=== PATIENT | male | born 1955 | race Caucasian/White ===

== ENCOUNTER 2019-08-02 17:34 | Observation (INO) | payer OTHER, SELFPAY ==
--- NOTE | ~2019-08-02 | CT_ITS ---
EXAMINATION: CTA chest DATE: 08/02/2019 19:08 INDICATION: Posterior chest pain TECHNIQUE: Computed tomographic angiography (CTA) of the chest was performed without and with 100 mL Omnipaque-350 intravenous contrast. Volume-rendered 3D-reconstructions of the aorta and large arterie s were constructed by the technologist on a separate workstation. Automated exposure control and iter ative reconstruction technique were employed. The dose-length product was 801 mGy-cm. COMPARISON: None FINDINGS: Minimal linear discoid atelectasis in the left lower lobe. No pneumonia, pulmonary edema, pleural eff usion or pneumothorax. Heart size is normal. Atherosclerotic coronary artery calcifications. Changes of prior coronary artery stenting and median sternotomy with coronary artery bypass grafting. No sang cardial effusion. Small amount of atherosclerotic calcification throughout the normal caliber thoraci c aorta. No aneurysm or dissection. Severe atrophy of the central portion of the right kidney. 3 to 4 mm nonobstructing right renal stone. Partially visualized 2.9 cm cyst at the lower pole of the left kidney. Multiple small gallstones in the dependent aspect of the normal-appearing gallbladder. Visua lized upper abdomen is otherwise unremarkable. Chronic mild anterior wedging of several vertebral bod ies in the mid to lower thoracic spine. There are bridging osteophytes at multiple levels in the spin e, consistent with diffuse idiopathic skeletal hyperostosis (DISH). IMPRESSION: 1. Normal caliber thoracic aorta with no aneurysm or dissection. No other acute cardiopulmonary disea se. 2. Cholelithiasis. 3. Nonobstructing 3-4 mm right renal stone and severe atrophy at the central portion of the right kid fabiola. Reviewed, dictated and finalized at location A. IMPRESSION: 1. Normal caliber thoracic aorta with no aneurysm or dissection. No other acute cardiopulmonary disease. 2. Cholelithiasis. 3. Nonobstructing 3-4 mm right renal stone and severe atrophy at the central po rtion of the right kidney.
--- NOTE | ~2019-08-02 | US_ITS ---
EXAMINATION: US right upper quadrant DATE: 08/03/2019 08:04 INDICATION: Gallstones. Chest pain. TECHNIQUE: Multiple grayscale and Doppler ultrasound images of the abdomen were obtained. COMPARISON: Chest CT 08/02/2019 FINDINGS: The visualized portions of the head, body, and tail of the pancreas are normal. The liver i s normal without focal lesion. There is normal flow in main portal vein. There are gallstones in the gallbladder, which is normal in size. No gallbladder wall thickening or sonographic Messina sign. The common duct is normal and measures 4 mm. There is moderate atrophy of right kidney. There is a 4 mm n onobstructing right kidney stone. IMPRESSION: 1. Cholelithiasis. No evidence of acute cholecystitis. 2. Nonobstructing right kidney stone. Moderate right kidney atrophy. Reviewed, dictated and finalized at location A.
[2019-08-02 18:00] VITALS: BP 105/57; PULSE 99; RESP 16; TEMP 36.3; O2SAT 96
[2019-08-02] MEDS: ASPIRIN 81 MG CHEWABLE TABLET 324 MG PO (18:10)
[2019-08-02 18:18] LABS: Basophils Absolute Auto 0.03 K/mm3 (0.00-0.10); Basophils Percent Auto 0.3 % (0.0-1.0); Eosinophils Absolute Auto 0.06 K/mm3 (0.02-0.50); Eosinophils Percent Auto 0.7 % (1.0-6.0); Hematocrit 42.3 % (40.0-54.0); Hemoglobin 13.9 g/dL (14.0-18.0); Immature Granulocyte Absolute 0.03 K/mm3 (0.00-0.00); Immature Granulocyte Percent A 0.3 % (0.0-0.0); Lymphocytes Absolute Auto 1.03 K/mm3 (1.10-4.50); Lymphocytes Percent Auto 11.5 % (18.0-42.0); Mean Corpuscular HGB Conc 32.9 g/dL (32.0-36.0); Mean Corpuscular Hemoglobin 28.7 pg (27.0-31.0); Mean Corpuscular Volume 87.2 fL (78.0-102.0); Mean Platelet Volume 12.7 fl (8.7-11.0); Monocytes Absolute Auto 0.48 K/mm3 (0.10-0.90); Monocytes Percent Auto 5.4 % (2.0-11.0); Neutrophils Absolute Auto 7.3 K/mm3 (1.7-7.2); Neutrophils Percent Auto 81.8 % (50.0-70.0); Platelet Count Result 163 K/mm3 (150-420); Red Blood Count 4.85 M/mm3 (4.70-6.10); Red Cell Distribution Width 13.9 % (11.6-14.4); White Blood Count 8.9 K/mm3 (4.8-10.8)
[2019-08-02 18:34] LABS: INR 1.1; Partial Thromboplastin Time 24.7 SEC (22.3-31.6)
[2019-08-02 18:36] LABS: Alanine Aminotransferase 18 U/L (16-63); Albumin Level 3.4 g/dL (3.4-5.0); Alkaline Phosphatase 88 U/L (46-116); Anion Gap 12.8 mmol/L (7-16); Aspartate Amino Transferase 20 U/L (15-37); Bilirubin,Total 0.7 mg/dL (0.00-1.00); Blood Urea Nitrogen 7 mg/dL (7-18); Calcium 8.5 mg/dL (8.5-10.1); Carbon Dioxide 26 mmol/L (21-32); Chloride 102 mmol/L (98-108); Estimated Glomerular Filt Rate 32; Glucose 177 mg/dL (70-99); Lipase 90 U/L (73-393); Osmolality Calculated 286 mOsm/kg (285-295); Potassium 3.8 mmol/L (3.5-5.1); Sodium 137 mmol/L (136-145); Total Protein 6.2 g/dL (6.4-8.2); Troponin I < 0.02 ng/mL (0.00-0.056)
[2019-08-02 18:42] LABS: BNP 56.4 pg/mL (0-100)
[2019-08-02 19:11] VITALS: BP 115/71; PULSE 80; O2SAT 98
--- NOTE | 2019-08-02 19:39 | ED.CHESTPAIN ---
HPI - Chest Pain General Chief Complaint: Chest Pain Stated Complaint: Chest Pain Source: patient Mode of arrival: ambulatory Limitations: no limitations History of Present Illness HPI narrative: This is a 64-year-old gentleman that presents with substernal chest pain radiating to his mid upper back with some that started earlier today has a history of coronary artery disease status post CABG back approximately in 2013 had a 4 vessel bypass and is currently seeing Dr. Smith the diamond broker, took 2 nitroglycerin tablet earlier prior to arrival. There was no shortness of breath no peripheral edema no fever chills no nausea vomiting pain did radiate to his mid upper back also has a history of hyperlipidemia, hypertension and depression. MD complaint: chest pain Pertinent past history: coronary artery disease Onset (ago): hour(s) Timing of current episode: episodic Prior episodes: Yes Onset: during rest Pain location: substernal Pain radiation: back Severity: moderate Pain scale (0-10): 6 Quality: tightness Relieving factors: nitroglycerin Exacerbating factors: nothing Context: recent illness Treatment prior to arrival: nitroglycerin Related Data Home Medications Medication Instructions Recorded Confirmed aspirin 81 mg PO DAILY 08/02/19 08/02/19 atorvastatin 40 mg PO DAILY 08/02/19 08/02/19 isosorbide mononitrate 30 mg PO DAILY 08/02/19 08/02/19 lorazepam 1 mg PO TID PRN 08/02/19 08/02/19 nitroglycerin 0.4 mg SUBLINGUAL Q5MIN PRN 08/02/19 08/02/19 paroxetine HCl 40 mg PO DAILY 08/02/19 08/02/19 tamsulosin 0.4 mg PO DAILY 08/02/19 08/02/19 Allergies Allergy/AdvReac Type Severity Reaction Status Date / Time No Known Allergies Allergy Verified 08/02/19 18:46 Review of Systems Review of Systems: All systems reviewed & are unremarkable except as noted in HPI and below PMFSH Past Medical History Medical History CAD (coronary artery disease) Depression HLD (hyperlipidemia) Exam Const: General: no acute distress and alert Orientation/consciousness: patient oriented x3 HENMT: Head: normal to inspection Eyes: Conjunctivae: conjunctivae normal Pupils: Equal, round and reactive pupils present EOM: EOMs intact bilaterally Neck: Neck: normal visual inspection Chest: Chest palpation & inspection: normal inspection of the chest Resp: Effort & Inspection: normal respiratory effort Auscultation: clear to auscultation bilaterally Cardio: Rate: regular rate Rhythm: regular rhythm GI: Auscultation: normal bowel sounds : Testes: Testes normal Skin: General skin exam: normal color Rashes: no rashes Neuro: General: patient oriented x3 and moves all extremities Extrem: General: normal to inspection Psych: Appearance: grossly normal Mental Status: mental status grossly normal Course Course Emergency Course: reassessment of patient appears more comfortable currently are no chest pain does have some mild upper back pain. Vital Signs Vital signs: Vital Signs Temperature 36.3 C L 08/02/19 18:00 Pulse Rate 99 08/02/19 18:00 Respiratory Rate 16 08/02/19 18:00 Blood Pressure 105/57 L 08/02/19 18:00 Pulse Oximetry 96 08/02/19 18:00 Temperature 36.3 C L 08/02/19 18:00 Pulse Rate 80 08/02/19 19:11 Respiratory Rate 16 08/02/19 18:00 Blood Pressure 115/71 08/02/19 19:11 Pulse Oximetry 98 08/02/19 19:11 MDM - Chest Pain Lab Data Attestation: I reviewed the patient's lab results. Result diagrams: 08/02/19 18:13 08/02/19 18:13 Labs: Lab Results 08/02/19 08/02/19 08/02/19 Range/Units 18:13 18:13 18:13 WBC 8.9 (4.8-10.8) K/mm3 RBC 4.85 (4.70-6.10) M/mm3 Hgb 13.9 L (14.0-18.0) g/dL Hct 42.3 (40.0-54.0) % MCV 87.2 (78.0-102.0) fL MCH 28.7 (27.0-31.0) pg MCHC 32.9 (32.0-36.0) g/dL RDW 13.9 (11.6-14.4) % Plt Count 163 (150-420) K/mm3
[2019-08-02 19:47] VITALS: PULSE 88; O2SAT 98
[2019-08-02 19:56] VITALS: BP 121/72; PULSE 80; RESP 17; O2SAT 98
[2019-08-02 20:00] VITALS: PULSE 88
[2019-08-02 20:20] VITALS: BMI 25.0
[2019-08-02] MEDS: SODIUM CHLORIDE 0.9% IV 1,000 ML 100 ML IV CONT (20:43)
[2019-08-02 21:47] LABS: Troponin I < 0.02 ng/mL (0.00-0.056)
[2019-08-02 23:45] VITALS: BP 141/77; PULSE 81; PULSE 83; RESP 18; TEMP 36.6; O2SAT 97
--- NOTE | 2019-08-02 23:45 | PC.NURSE ---
Patient appears to have st elevation of telemetry strip. Vital signs obtained. Patient denies pain, nausea, shortness of breath. Patient informed to call nurse if he began having any symptoms. charge nurse notified.
--- NOTE | 2019-08-02 23:55 | PC.NURSE ---
Patient telemetry appears to be having ST elevation. Doctor notified. Patient was sleeping. Pain rated at 0. VS 141/77 81 97% 18 97.5. Trop draw due at 0013. Doctor ordered EKG for the morning.
--- NOTE | 2019-08-02 23:59 | ECG_ITS ---
Measurements Intervals [place] Rate: 101 P: 18 MN: 145 QRS: 34 QRSD: 97 T: 39 QT: 339 QTc: 441 Interpretive Statements SINUS TACHYCARDIA INCOMPLETE RIGHT BUNDLE BRANCH BLOCK BASELINE ARTIFACT- I, II, III BORDERLINE ECG Electronically Signed On 08-03-2019 6:56:55 CDT by Jacky Hunter D.O.
--- NOTE | 2019-08-03 00:23 | PC.NURSE ---
Lab up to draw troponin, patient continues to denies chest pain.
[2019-08-03 00:46] LABS: Troponin I < 0.02 ng/mL (0.00-0.056)
[2019-08-03 04:00] VITALS: BP 144/74; PULSE 63; PULSE 70; RESP 18; TEMP 36.9; O2SAT 97
--- NOTE | 2019-08-03 06:08 | PC.NURSE ---
Patient up in bathroom independently. He denies pain. He states that he feels well this morning.
[2019-08-03] MEDS: SODIUM CHLORIDE 0.9% IV 1,000 ML 100 ML IV CONT (06:14)
--- NOTE | 2019-08-03 06:27 | ECG_ITS ---
Measurements Intervals [place] Rate: 64 P: 42 CT: 163 QRS: 50 QRSD: 100 T: 37 QT: 396 QTc: 411 Interpretive Statements SINUS OR ECTOPIC ATRIAL RHYTHM INCOMPLETE RIGHT BUNDLE BRANCH BLOCK BORDERLINE ECG Electronically Signed On 08-03-2019 6:57:44 CDT by Jacky Hunter D.O.
[2019-08-03 08:00] VITALS: BP 141/77; PULSE 79; PULSE 81; RESP 18; TEMP 36.7; O2SAT 97
[2019-08-03 08:27] LABS: Basophils Absolute Auto 0.02 K/mm3 (0.00-0.10); Basophils Percent Auto 0.3 % (0.0-1.0); Eosinophils Absolute Auto 0.21 K/mm3 (0.02-0.50); Hematocrit 41.8 % (40.0-54.0); Hemoglobin 13.5 g/dL (14.0-18.0); Immature Granulocyte Absolute 0.02 K/mm3 (0.00-0.00); Immature Granulocyte Percent A 0.3 % (0.0-0.0); Lymphocytes Absolute Auto 1.68 K/mm3 (1.10-4.50); Mean Corpuscular HGB Conc 32.3 g/dL (32.0-36.0); Mean Corpuscular Hemoglobin 28.2 pg (27.0-31.0); Mean Corpuscular Volume 87.3 fL (78.0-102.0); Mean Platelet Volume 12.2 fl (8.7-11.0); Monocytes Percent Auto 7.1 % (2.0-11.0); Neutrophils Absolute Auto 4.6 K/mm3 (1.7-7.2); Neutrophils Percent Auto 65.3 % (50.0-70.0); Platelet Count Result 153 K/mm3 (150-420); Red Blood Count 4.79 M/mm3 (4.70-6.10); Red Cell Distribution Width 14.1 % (11.6-14.4)
[2019-08-03] MEDS: ATORVASTATIN 40 MG TABLET PO (08:32)
[2019-08-03] MEDS: TAMSULOSIN HCL 0.4 MG CAPSULE PO (08:32)
[2019-08-03] MEDS: ASPIRIN 81 MG CHEWABLE TABLET PO (08:32)
[2019-08-03] MEDS: PAROXETINE 20 MG TABLET 40 MG PO (08:32)
[2019-08-03] MEDS: ISOSORBIDE MONONITRATE 30 MG TAB.ER.24H PO (08:32)
[2019-08-03 09:03] LABS: Alanine Aminotransferase 18 U/L (16-63); Albumin Level 3.1 g/dL (3.4-5.0); Alkaline Phosphatase 81 U/L (46-116); Aspartate Amino Transferase 13 U/L (15-37); Bilirubin,Total 0.7 mg/dL (0.00-1.00); Blood Urea Nitrogen 10 mg/dL (7-18); Calcium 8.3 mg/dL (8.5-10.1); Carbon Dioxide 27 mmol/L (21-32); Chloride 106 mmol/L (98-108); Estimated CRCL calculation 47 ml/min; Estimated Glomerular Filt Rate 47; Glucose 99 mg/dL (70-99); Osmolality Calculated 289 mOsm/kg (285-295); Sodium 140 mmol/L (136-145); Total Protein 5.7 g/dL (6.4-8.2)
[2019-08-03 12:00] VITALS: BP 118/59; PULSE 81; RESP 16; O2SAT 98
--- NOTE | 2019-08-03 12:52 | PM.SD ---
Same Day Admit/Disch: HPI History of Present Illness Chief complaint: Chest Pain Narrative: Ambrose Clarke is a 64 year old male that was admitted yesterday with complaints of chest pain. patient has a past medical history of CAD, depression, HLD and status post CABG x4 vessels in 2013. according the patient while he was out fishing yesterday he started to experiencing chest pains that radiated to his shoulders and caused stomach ache with nausea. Patient noted that he took 2 nitros with no improvement and have an hour later he took another nitro with no improvement. This is when he decided to come to ED. Patient noted that once he arrived to the ED his symptoms resolved. While in the ED troponins were collected x3 which were negative, D-dimer within normal limits, his EKG did indicate sinus tach the heart rate of 101, CTA negative for dissection or aneurysm. On a CTA that was 3.4 mm renal stone that was nonobstructing identified. Ultrasound was completed which indicated moderate atrophy of right kidney and 4 mm nonobstructive right kidney stone. Patient creatinine was slightly elevated on admission it is currently 1.50 with his baseline being 1.30. Patient has been asymptomatic since admission and his night was uneventful. Her record of this admission will be faxed to Dr. Smith and he will be discharged today with a refill on his nitro and a prescription for PPI. Patient able to tolerate all meals , slept well and ambulate at baseline. Patient denies SOB, CP, palpitation, extremity numbness, lightheadness, dizziness, constipation, diarrhea, chills or fever. Patient agree that they are ready for discharge and discharge plan. FOR[facility]LY [facility] Past Medical History Medical History CAD (coronary artery disease) Depression HLD (hyperlipidemia) Social History Social History Years smoked: 30 Smoking status: Former smoker Tobacco type: cigarettes Second hand tobacco smoke exposure: Yes Smoking end date: 07/15/09 Alcohol intake: current Drinks per week: 1 Substance use: never Gender identity (if verbalized by the patient): Male Sexual Orientation (if Verbalized by the Patient): Straight or Heterosexual Spiritual care concerns: No Same Day Admit/Disch: Med Pre-admit Medications Home Medications Medication Instructions Recorded Confirmed Type aspirin 81 mg PO DAILY 08/02/19 08/02/19 History atorvastatin 40 mg PO DAILY 08/02/19 08/02/19 History isosorbide mononitrate 30 mg PO DAILY 08/02/19 08/02/19 History lorazepam 1 mg PO TID PRN 08/02/19 08/02/19 History nitroglycerin 0.4 mg SUBLINGUAL Q5MIN PRN 08/02/19 08/02/19 History paroxetine HCl 40 mg PO DAILY 08/02/19 08/02/19 History tamsulosin 0.4 mg PO DAILY 08/02/19 08/02/19 History Exam Narrative: Exam Narrative: General: A well-developed, well-nourished male sitting up in bed no acute distress. HEENT: Normocephalic, atraumatic. PERRL, EOMI. Sclerae anicteric. Oral mucosa moist. Oropharynx clear. Neck: Supple. Respiratory: Lungs are clear to auscultation bilaterally. Cardiovascular: Regular rate and rhythm with S1-S2. Gastrointestinal: Abdomen is soft, nontender, and nondistended with positive bowel sounds. No organomegaly. Skin: Warm, dry, and slightly pale.. No rash or lesions on limited exam. Extremities: No cyanosis, clubbing, or edema. Radial and pedal pulses intact. Neurological: Alert. Cranial nerves 2-12 are grossly intact. No gross focal deficits to casual conversation. Psychiatric: Pleasant and cooperative with normal mood and affect. Judgment and insight intact. DS: Data Data Completed and Pending Labs on day of discharge: Labs from last 24 hours 08/03/19 08/03/19 08/03/19 08:12 08:12 00:20 WBC 7.0 RBC 4.79 Hgb 13.5 L Hct 41.8 MCV 87.3 MCH 28.2 MCHC 32.3 RDW 14.1 Plt Count 153 MPV 1
--- NOTE | 2019-08-03 23:04 | PM.EVENT ---
Event Note Event Note Event Note: Patient states he feels better and has had no chest pain overnight. He denies shortness of breath, edema, cough. Alert and oriented. No acute distress. Mucous membranes moist. Regular rate rhythm without murmur or gallop. Lungs are clear to auscultation bilaterally. Extremities are warm dry and pink without edema. Home today with follow-up with primary care doctor. I have reviewed the chart and examined the patient. I discussed the patient's care with Graciela Flores APN and agree with her assessment plan.
== END 2019-08-03 14:16 | disposition home or self-care (01) ==
LOC: CHSED 17:36 → CHS2ND 19:55
PROVIDERS: Admitting Provider Emergency Medicine; Emergency Provider Emergency Medicine; PCP Family Medicine; Visit Provider Emergency Medicine
DX: R07.9 Chest pain, unspecified (principal); K80.20 Calculus of gallbladder without cholecystitis without obstruction; N20.0 Calculus of kidney; N26.1 Atrophy of kidney (terminal); I25.10 Atherosclerotic heart disease of native coronary artery without angina pectoris; E78.5 Hyperlipidemia, unspecified; I10 Essential (primary) hypertension; F32.9 Major depressive disorder, single episode, unspecified; Z87.891 Personal history of nicotine dependence; Z95.1 Presence of aortocoronary bypass graft
CPT/HCPCS: 36415; 71275; 76705; 80053; 83690; 83880; 84484; 85025; 85380; 85610; 85730; 93005; 96360; 96361; 99285; A9270; G0378; J7030; Q9965

== ENCOUNTER 2019-08-10 11:18 | Outpatient (CLI) | payer OTHER, SELFPAY ==
--- NOTE | ~2019-08-10 | XR_ITS ---
EXAMINATION: XR hand RT min 3V EXAM DATE: 08/10/2019 11:46 INDICATION: No known recent injury provided at this time. Pain of the right hand. TECHNIQUE: Right hand frontal, lateral and oblique projections obtained and reviewed. There is no pr ior study for comparison. FINDINGS: Right metacarpal bones are unremarkable. There is mild 3rd proximal interphalangeal joint primary osteoarthritis. There are no acute fractures or dislocations identified. There is no subcuta neous gas. The soft tissue is unremarkable. There are no radiopaque foreign bodies. IMPRESSION: Mild right 3rd PIP osteoarthritis. Reviewed, dictated and finalized at location B.
--- NOTE | ~2019-08-10 | XR_ITS ---
EXAMINATION: XR hip LT min 2V EXAM DATE: 08/10/2019 11:46 INDICATION: No known recent injury provided at this time. Pain of the left hip. TECHNIQUE: Left hip frontal, 'frog leg' projections for interpretation. There is no prior study for comparison. FINDINGS: Smooth left hip femoral head contour, no radiographic evidence of avascular necrosis. The re is mild to moderate left hip primary osteoarthritis. There are no acute fractures or dislocations identified. There is no subcutaneous gas. The soft tissue is unremarkable. There are no radiopaqu e foreign bodies. IMPRESSION: Mild to moderate left hip osteoarthritis. Reviewed, dictated and finalized at location B.
--- NOTE | ~2019-08-10 | XR_ITS ---
XR lumbar spine min 4V DATE: 08/10/2019 11:46 INDICATION: Low back pain. Left hip pain. TECHNIQUE: AP, lateral, coned lateral lumbosacral views COMPARISON: 06/10/2017 lumbar spine FINDINGS: Diffuse idiopathic skeletal hyperostosis of the lower thoracic spine. There is moderate degenerative disease at L1-2 and L3-4. Moderately severe degenerative disc disease at L5-S1. No fracture or bone destruction. The lower thoracic and lumbar pedicles are intact. The sacroiliac joints are intact. There is severe calcification of the abdominal aorta as well as calcification of the iliac arteries. IMPRESSION: Diffuse idiopathic skeletal hyperostosis of the lower thoracic spine Multilevel degenerative disc disease of the lumbar spine Reviewed, dictated and finalized at location A. IMPRESSION: Diffuse idiopathic skeletal hyperostosis of the lower thoracic spin e Multilevel degenerative disc disease of the lumbar spine
--- NOTE | ~2019-08-10 | US_ITS ---
EXAMINATION: US scrotum doppler EXAM DATE: 08/10/2019 12:16 INDICATION: Bilateral scrotal pain. TECHNIQUE: Multiple grayscale and Doppler images of the testicles and scrotum were obtained bilateral ly. There is no prior study for comparison. FINDINGS: Right testicle measures 4.8 x 3.4 x 2.8 cm and is morphologically normal. Low resistance Doppler loi w confirmed. The epididymis is unremarkable. There is no hydrocele or varicocele. Left testicle measures 5.3 x 3.3 x 2.9 cm and is morphologically normal. Low resistance Doppler flow confirmed. The epididymis is unremarkable. Small left varicocele. IMPRESSION: 1. Small left varicocele. Reviewed, dictated and finalized at location B. IMPRESSION: 1. Small left varicocele.
== END 2019-08-10 11:19 | disposition home or self-care (01) ==
LOC: CHSIMG 11:20
PROVIDERS: PCP Family Medicine; Visit Provider Family Medicine
DX: M25.552 Pain in left hip (principal); M25.541 Pain in joints of right hand; M54.5 Low back pain; N50.82 Scrotal pain
CPT/HCPCS: 72110; 73130; 73502; 76870; 93976

== ENCOUNTER 2019-08-21 07:15 | Outpatient (CLI) | payer OTHER, SELFPAY ==
--- NOTE | ~2019-08-21 | MR_ITS ---
EXAMINATION: MR lumbar spine wo con DATE: 08/21/2019 08:45 INDICATION: Lumbar radiculopathy. TECHNIQUE: Magnetic resonance imaging (MRI) of the lumbar spine was performed without intravenous con trast. Sequences included sagittal T2-weighted FSE, sagittal T2-weighted FS FSE, sagittal T1-weighted FSE, and axial T2-weighted FSE. COMPARISON: Lumbar spine radiographs 08/10/2019, chest CT 08/02/2019 FINDINGS: There is 3 mm retrolisthesis of L5 on S1. There is chronic anterior wedging of T11 and T12 vertebral bodies. There is mildly decreased disc height at L3-L4 and severely decreased disc height a t L5-S1. The distal spinal cord signal intensity is normal. The conus medullaris is at L1. There is s evere atrophy of the visualized portions of the mid zone and upper pole of right kidney. There is a 3 .1 cm cyst in left kidney. The following disc levels are specifically discussed: L1-L2: The disc does not extend beyond the endplate margin. There is mild bilateral facet joint osteo arthritis. There is no neural foraminal stenosis. There is no central canal stenosis. L2-L3: The disc does not extend beyond the endplate margin. There is moderate bilateral facet joint o steoarthritis. There is no neural foraminal stenosis. There is no central canal stenosis. L3-L4: The disc is bulging and has an annular fissure. There is moderate bilateral facet joint osteoa rthritis. There is moderate bilateral neural foraminal stenosis. There is mild central canal stenosis . L4-L5: The disc is mildly bulging. There is moderate right and severe left facet joint osteoarthritis . There is mild bilateral neural foraminal stenosis. There is mild central canal stenosis. L5-S1: The disc is bulging and has an annular fissure. There is moderate bilateral facet joint osteoa rthritis. There is mild bilateral neural foraminal stenosis. There is mild central canal stenosis. IMPRESSION: 1. Severe lower lumbar spondylosis. 2. Severe atrophy of portions of right kidney. Reviewed, dictated and finalized at location A.
== END 2019-08-21 07:16 | disposition home or self-care (01) ==
PROVIDERS: PCP Family Medicine; Visit Provider Family Medicine
DX: M54.16 Radiculopathy, lumbar region (principal)
CPT/HCPCS: 72148

== ENCOUNTER 2019-10-17 17:38 | Outpatient (CLI) | payer OTHER, SELFPAY ==
--- NOTE | ~2019-10-17 | XR_ITS ---
XR thoracic spine 3V DATE: 10/17/2019 17:59 INDICATION: Right lower mid back pain for several months. TECHNIQUE: AP, lateral, swimmer views COMPARISON: 12/04/2018 thoracic spine FINDINGS: Diffuse osteopenia. Diffuse idiopathic skeletal hyperostosis of the thoracic spine. No recent fracture or bone destruction is evident. Mild chronic loss of height and anterior wedging o f T12. No paraspinal soft tissue thickening. Status post sternotomy. IMPRESSION: Diffuse osteopenia Diffuse idiopathic skeletal hyperostosis of the thoracic spine Chronic mild loss of height and anterior wedging of T12 Reviewed, dictated and finalized at location A.
--- NOTE | ~2019-10-17 | XR_ITS ---
XR abdomen obstructive series DATE: 10/17/2019 17:59 INDICATION: Right upper quadrant pain and right lower mid back pain for several months TECHNIQUE: Supine and upright AP views COMPARISON: None FINDINGS: There is extensive calcification of the abdominal aorta and common iliac arteries without e vidence of aneurysm. The psoas shadows are intact. There is no visceromegaly. There is no evidence of bowel obstruction or intraperitoneal free air. Sternal wire sutures. Diffuse idiopathic skeletal hyperostosis of the thoracolumbar spine. IMPRESSION: No bowel obstruction or free air Reviewed, dictated and finalized at Location A. Reviewed, dictated and finalized at location A.
== END 2019-10-17 17:39 | disposition home or self-care (01) ==
LOC: CHSIMG 17:39
PROVIDERS: PCP Family Medicine; Visit Provider Family Medicine
DX: R10.11 Right upper quadrant pain (principal); M54.9 Dorsalgia, unspecified
CPT/HCPCS: 72072; 74019

== ENCOUNTER 2020-09-04 10:41 | Outpatient (CLI) | payer OTHER, SELFPAY ==
--- NOTE | ~2020-09-04 | XR_ITS ---
EXAMINATION: XR abdomen obstructive series DATE: 09/04/2020 11:26 INDICATION: Right lower quadrant pain TECHNIQUE: Upright and supine views of the abdomen were obtained. COMPARISON: 10/17/2019 FINDINGS: The bowel gas pattern is normal. There are no dilated loops of bowel. No free intraperitone al gas is identified. There is mild to moderate osteoarthritis of the hips. The visualized lung bases are clear. Changes of cardiac surgery are noted. There is right nephrolithiasis. IMPRESSION: 1. Nonobstructive bowel gas pattern. Reviewed, dictated and finalized at location B.
--- NOTE | ~2020-09-04 | XR_ITS ---
XR lumbar spine 2-3V DATE: 09/04/2020 11:26 INDICATION: Back pain TECHNIQUE: AP, lateral, coned lateral lumbosacral views COMPARISON: 08/10/2019 lumbar spine 08/21/2019 MRI lumbar spine FINDINGS: Diffuse idiopathic skeletal hyperostosis of the thoracic spine. There is severe degenerative disc disease and mild retrolisthesis at L5-S1. Moderate degenerative disc disease and spurring is noted at L1-2 and L3-4, with mild degenerative dis c disease and spurring at L2-3 and L4-5. No fracture or bone destruction is evident. The included lower thoracic and lumbar pedicles are intac t. The included upper sacroiliac joints appear unremarkable. Status post sternotomy. Extensive calcification of the abdominal aorta and iliac arteries without evidence of aneurysm. IMPRESSION: Multilevel degenerative central the lumbar spine, most severe at L5-S1, with associated m ild retrolisthesis at this level Reviewed, dictated and finalized at location A. IMPRESSION: Multilevel degenerative central the lumbar spine, most severe at L5 -S1, with associated mild retrolisthesis at this level
--- NOTE | ~2020-09-04 | XR_ITS ---
XR thoracic spine 3V DATE: 09/04/2020 11:26 INDICATION: Thoracic back pain TECHNIQUE: AP, lateral, swimmer views COMPARISON: 10/17/2019 thoracic spine FINDINGS: There is diffuse osteopenia. There is diffuse idiopathic skeletal hyperostosis. No fracture or dislocation or bone destruction is detected. The thoracic pedicles appear intact. No p araspinal soft tissue thickening. Status post sternotomy. IMPRESSION: Osteopenia Diffuse idiopathic skeletal hyperostosis Reviewed, dictated and finalized at location A.
== END 2020-09-04 10:42 | disposition home or self-care (01) ==
LOC: CHSIMG 10:44
PROVIDERS: PCP Family Medicine; Visit Provider Family Medicine
DX: M54.9 Dorsalgia, unspecified (principal); M48.14 Ankylosing hyperostosis [Forestier], thoracic region
CPT/HCPCS: 72072; 72100; 74019

== ENCOUNTER 2020-09-12 22:44 | Emergency (ER) | payer OTHER, SELFPAY ==
--- NOTE | ~2020-09-12 | CT_ITS ---
EXAMINATION: CT abdomen pelvis w con INDICATION: Persistent vomiting and diarrhea TECHNIQUE: Computed tomographic images of the abdomen and pelvis were obtained after the administrati on of 100 cc of Omnipaque 350 intravenous contrast. The dose-length product (DLP) was 849.99 mGy-cm. Automated exposure control and iterative reconstruction technique were employed. COMPARISON: 08/02/2019 FINDINGS: The lung bases are clear. The heart size is normal. Partially imaged median sternotomy wire s are noted. There is mild bilateral gynecomastia. There is a 9 mm hypoattenuating lesion of the righ t hepatic lobe. The spleen, pancreas, and adrenal glands are normal. Stones are present in the nondis tended gallbladder. There is chronic severe atrophy of the central right kidney. There are 5 mm and 6 mm nonobstructing stones of the right mid kidney. There is a 3.8 cm cyst of the left kidney. There i s calcified atherosclerosis of the aorta and many of the other arteries. No pathologically enlarged a bdominal or pelvic lymph nodes are identified. There is no free intraperitoneal gas or evidence of roseann wel obstruction. The appendix is normal. There is liquid stool throughout much of the colon. There is moderate lumbar spondylosis. IMPRESSION: 1. Liquid stool throughout much of the colon, consistent with history of diarrhea. 2. 9 mm hypoattenuating lesion of the right hepatic lobe, likely benign in the absence of known malig omer. If the patient has no known primary malignancy, no hepatic dysfunction, or diabetic risk facto rs, no further follow-up is recommended. In the presence of these risk factors, follow-up MRI without and with contrast in 3-6 months would be recommended. Reviewed, dictated and finalized at location A. IMPRESSION: 1. Liquid stool throughout much of the colon, consistent with history of diarrh ea. 2. 9 mm hypoattenuating lesion of the right hepatic lobe, likely benign in the absence of known malignancy. If the patient has no known primary malignancy, no hepatic dysfunction, or diabetic risk factors, no further follow-up is recomme nded. In the presence of these risk factors, follow-up MRI without and with con trast in 3-6 months would be recommended.
[2020-09-12 22:54] VITALS: BP 118/70; PULSE 68; RESP 16; TEMP 36.6; O2SAT 97
--- NOTE | 2020-09-12 22:59 | PC.NURSE ---
pt receive zofran 4mg IV per [facility]
--- NOTE | 2020-09-12 23:01 | ECG_ITS ---
Measurements Intervals [place] Rate: 56 P: -33 GA: 149 QRS: 52 QRSD: 96 T: 45 QT: 404 QTc: 391 Interpretive Statements SINUS BRADYCARDIA INCOMPLETE RIGHT BUNDLE BRANCH BLOCK DELAYED PRECORDIAL R/S TRANSITION BORDERLINE ECG Electronically Signed On 09-13-2020 7:47:05 CDT by Jacky Hunter D.O.
[2020-09-12 23:40] LABS: Basophils Absolute Auto 0.02 K/mm3 (0.00-0.10); Basophils Percent Auto 0.2 % (0.0-1.0); Eosinophils Absolute Auto 0.07 K/mm3 (0.02-0.50); Eosinophils Percent Auto 0.7 % (1.0-6.0); Hematocrit 47.6 % (40.0-54.0); Hemoglobin 15.4 g/dL (14.0-18.0); Immature Granulocyte Absolute 0.04 K/mm3 (0.00-0.00); Immature Granulocyte Percent A 0.4 % (0.0-0.0); Lymphocytes Absolute Auto 0.58 K/mm3 (1.10-4.50); Lymphocytes Percent Auto 5.7 % (18.0-42.0); Mean Corpuscular HGB Conc 32.4 g/dL (32.0-36.0); Mean Corpuscular Hemoglobin 27.8 pg (27.0-31.0); Mean Corpuscular Volume 85.9 fL (78.0-102.0); Mean Platelet Volume 12.3 fl (8.7-11.0); Monocytes Absolute Auto 0.58 K/mm3 (0.10-0.90); Monocytes Percent Auto 5.7 % (2.0-11.0); Neutrophils Percent Auto 87.3 % (50.0-70.0); Platelet Count Result 172 K/mm3 (150-420); Red Blood Count 5.54 M/mm3 (4.70-6.10); Red Cell Distribution Width 13.4 % (11.6-14.4); White Blood Count 10.2 K/mm3 (4.8-10.8)
[2020-09-12] MEDS: PANTOPRAZOLE SODIUM IV 40 MG VIAL IV PUSH (23:40)
[2020-09-12] MEDS: ONDANSETRON INJ 4 MG/2 ML VIAL IV PUSH (23:40)
[2020-09-12] MEDS: MORPHINE SULFATE (*CRX) 2 MG/ML INJ IV PUSH (23:40)
[2020-09-12] MEDS: SODIUM CHLORIDE 0.9% IV 1,000 ML 999 ML IV CONT (23:40)
[2020-09-12 23:56] LABS: Alanine Aminotransferase 16 U/L (16-63); Albumin Level 3.7 g/dL (3.4-5.0); Alkaline Phosphatase 83 U/L (46-116); Anion Gap 14 mmol/L (8-16); Aspartate Amino Transferase 15 U/L (15-37); Bilirubin,Total 1.1 mg/dL (0.00-1.00); Blood Urea Nitrogen 13 mg/dL (7-18); Calcium 9.3 mg/dL (8.5-10.1); Carbon Dioxide 24 mmol/L (21-32); Chloride 104 mmol/L (98-108); Estimated CRCL calculation 44 ml/min; Estimated Glomerular Filt Rate 46; Glucose 128 mg/dL (70-99); Lipase 50 U/L (73-393); Osmolality Calculated 296 mOsm/kg (285-295); Potassium 3.7 mmol/L (3.5-5.1); Sodium 142 mmol/L (136-145); Total Protein 6.9 g/dL (6.4-8.2)
[2020-09-13 00:07] VITALS: BP 118/70; PULSE 70; RESP 18; TEMP 36.6; O2SAT 98
[2020-09-13 00:22] LABS: Add Urine Microscopic? YES; Appearance Urine Clear (Clear); Bilirubin Urine Negative (Negative); Blood Urine Negative (Negative); Color Urine Yellow (Yellow); Glucose Urine UA Negative (Negative); Ketones Urine Negative (Negative); Leukocyte Esterase Ur Negative (Negative); Nitrate Urine Negative (Negative); Protein Urine Trace (Negative); Specific Grav Ur 1.015 (1.010-1.020); Urobilinogen Urine 0.2 mg/dL (0.2-1.0)
[2020-09-13 00:27] LABS: Bacteria Urine 1+ /hpf; Mucus Urine Few /lpf; RBC Urine 0-2 /hpf (0-2); Squamous Epithelial Cell Urine None seen /hpf (Few); WBC Urine 0-3 /hpf (0-3)
--- NOTE | 2020-09-13 00:30 | ED.GENADULT ---
HPI - General Adult General Chief complaint: Unspecified Stated complaint: Ambulance Time Seen by Provider: 09/12/20 22:56 Source: patient, family, EMS and RN notes reviewed Mode of arrival: EMS Limitations: no limitations History of Present Illness HPI narrative: nausea and vomiting after eating supper. no acute chest pain or SOB MD complaint: nausea and vomiting. Onset (ago): hour(s) (2) Location: abdomen Radiation: non-radiation Severity: mild Severity scale (1-10): 3 Quality: other (minimal abdominal pain) Pain Consistency: colicky Relieving factors: none Exacerbating factors: none Associated symptoms: denies other symptoms Treatments prior to arrival: none Related Data Home Medications Medication Instructions Recorded Confirmed aspirin 81 mg PO DAILY 08/02/19 09/12/20 atorvastatin 40 mg PO DAILY 08/02/19 09/12/20 isosorbide mononitrate 30 mg PO DAILY 08/02/19 09/12/20 lorazepam 1 mg PO TID PRN 08/02/19 09/12/20 paroxetine HCl 40 mg PO DAILY 08/02/19 09/12/20 tamsulosin 0.4 mg PO DAILY 08/02/19 09/12/20 Allergies Allergy/AdvReac Type Severity Reaction Status Date / Time No Known Allergies Allergy Verified 08/02/19 18:46 Review of Systems Review of Systems: All systems reviewed & are unremarkable except as noted in HPI and below Constitutional: Constitutional: Reports as per HPI and Reports no additional constitutional complaints Eyes: Eyes: Reports as per HPI and Reports no additional eye complaints ENT: Reports system reviewed and no additional complaints, except as documented and Reports as per HPI Cardiovascular: Cardiovascular: Reports as per HPI and Reports no additional cardiovascular complaints Respiratory: Respiratory: Reports as per HPI and Reports no additional respiratory complaints Gastrointestinal: Gastrointestinal: Reports as per HPI, Reports abdominal pain, Reports GI cramping, Reports nausea and Reports vomiting Genitourinary: Genitourinary: Reports no additional male genitourinary complaints and Reports as per HPI Musculoskeletal: Musculoskeletal: Reports no additional musculoskeletal complaints and Reports as per HPI Integumentary/Breasts: Skin/Breast: Reports system reviewed and no additional complaints, except as docu and Reports as per HPI Neurologic: Reports system reviewed and no additional complaints, except as documented Psychiatric: Psychiatric: Reports no additional psychiatric complaints and Reports as per HPI Endocrine: Endocrine: Reports no additional endocrine complaints and Reports as per HPI Hematologic/Lymphatic: Hematologic/Lymphatic: Reports no additional hematologic/lymphatic complaints and Reports as per HPI Allergic/Immunologic: Allergic/Immunologic: Reports no additional allergic/immunologic complaints and Reports as per HPI PMFSH Past Medical History Medical History CAD (coronary artery disease) Depression HLD (hyperlipidemia) Social History Social History Years smoked: 30 Smoking status: Former smoker Tobacco type: cigarettes Second hand tobacco smoke exposure: Yes Smoking end date: 07/15/09 Alcohol intake: current Drinks per week: 1 Substance use: never Gender identity (if verbalized by the patient): Male Spiritual care concerns: No Exam Const: General: cooperative, healthy appearing and no acute distress Nutritional Appearance: well nourished Orientation/consciousness: oriented to person, oriented to place, oriented to time and patient oriented x3 HENMT: Head: normal to inspection, normocephalic and atraumatic Ears: hearing grossly normal bilaterally and TM normal on the left General nose exam: Normal external nose present and Normal nares present Face and sinus: normal facial exam Mouth: Yes oropharynx normal and Yes moist mucous membranes Throat: posterior oropharynx normal and tonsils normal Eyes: Genera
[2020-09-13 01:06] VITALS: BP 130/88; PULSE 90; RESP 20; TEMP 36.6; O2SAT 96
== END 2020-09-13 01:14 | disposition home or self-care (01) ==
PROVIDERS: Emergency Provider Emergency Medicine; PCP Family Medicine
DX: K52.9 Noninfective gastroenteritis and colitis, unspecified (principal)
CPT/HCPCS: 36415; 74177; 80053; 81001; 83690; 85025; 93005; 96365; 96375; 99283; 99284; C9113; J0696; J2270; J2405; J7030; Q9967

== ENCOUNTER 2020-10-15 11:38 | Outpatient (CLI) | payer OTHER, SELFPAY ==
[2020-10-15 12:40] LABS: Cholesterol 188 mg/dL (0-200); HDL Direct 44 mg/dL (40-60); LDL Cholesterol Calculated 122 mg/dL (<130); Triglycerides 111 mg/dL (0-150)
[2020-10-15 16:00] LABS: Basophils Absolute Auto 0.02 K/mm3 (0.00-0.10); Basophils Percent Auto 0.3 % (0.0-1.0); Eosinophils Absolute Auto 0.11 K/mm3 (0.02-0.50); Eosinophils Percent Auto 1.8 % (1.0-6.0); Hematocrit 45.7 % (40.0-54.0); Hemoglobin 14.7 g/dL (14.0-18.0); Immature Granulocyte Absolute 0.01 K/mm3 (0.00-0.00); Immature Granulocyte Percent A 0.2 % (0.0-0.0); Lymphocytes Absolute Auto 1.65 K/mm3 (1.10-4.50); Lymphocytes Percent Auto 26.6 % (18.0-42.0); Mean Corpuscular HGB Conc 32.2 g/dL (32.0-36.0); Mean Corpuscular Hemoglobin 27.8 pg (27.0-31.0); Mean Corpuscular Volume 86.4 fL (78.0-102.0); Mean Platelet Volume 12.7 fl (8.7-11.0); Monocytes Percent Auto 11.3 % (2.0-11.0); Neutrophils Absolute Auto 3.7 K/mm3 (1.7-7.2); Neutrophils Percent Auto 59.8 % (50.0-70.0); Platelet Count Result 187 K/mm3 (150-420); Red Blood Count 5.29 M/mm3 (4.70-6.10); Red Cell Distribution Width 14.1 % (11.6-14.4); White Blood Count 6.2 K/mm3 (4.8-10.8)
[2020-10-15 16:11] LABS: Alanine Aminotransferase 26 U/L (16-63); Albumin Level 4.3 g/dL (3.4-5.0); Alkaline Phosphatase 91 U/L (46-116); Amylase 31 U/L (25-115); Anion Gap 11 mmol/L (8-16); Aspartate Amino Transferase 18 U/L (15-37); Bilirubin,Total 0.9 mg/dL (0.00-1.00); Blood Urea Nitrogen 10 mg/dL (7-18); Calcium 9.2 mg/dL (8.5-10.1); Carbon Dioxide 25 mmol/L (21-32); Chloride 104 mmol/L (98-108); Estimated Glomerular Filt Rate 53; Glucose 105 mg/dL (70-99); Lipase 79 U/L (73-393); Osmolality Calculated 289 mOsm/kg (285-295); Potassium 4.5 mmol/L (3.5-5.1); Sodium 140 mmol/L (136-145); Total Protein 7.2 g/dL (6.4-8.2)
[2020-10-15 16:20] LABS: Add Urine Microscopic? YES; Appearance Urine Clear (Clear); Bilirubin Urine Negative (Negative); Blood Urine Negative (Negative); Color Urine Yellow (Yellow); Glucose Urine UA Negative (Negative); Ketones Urine Trace (Negative); Leukocyte Esterase Ur Negative LEU/UL (Negative); Nitrate Urine Negative (Negative); Protein Urine Negative (Negative)
[2020-10-15 16:25] LABS: Bacteria Urine Trace /hpf; Mucus Urine Moderate /lpf; RBC Urine None seen /hpf (0-2); Squamous Epithelial Cell Urine Rare /hpf (Few); WBC Urine None seen /hpf (0-3)
== END 2020-10-15 11:39 | disposition home or self-care (01) ==
PROVIDERS: PCP Family Medicine; Visit Provider Family Medicine
DX: E78.2 Mixed hyperlipidemia (principal); R10.31 Right lower quadrant pain
CPT/HCPCS: 36415; 80053; 80061; 81001; 82150; 83690; 85025

== ENCOUNTER 2020-10-28 16:20 | Outpatient (CLI) | payer OTHER, SELFPAY ==
--- NOTE | ~2020-10-28 | MR_ITS ---
EXAMINATION: MR abdomen wo/w con INDICATION: Neoplasm of unspecified behavior of unspecified kidney TECHNIQUE: Coronal SSFSE ARC, WATER:coronal LAVA-FLEX, Coronal 2D FIESTA FatSat, Axial SSFSE BH ARC, Axial 3D DualEcho BH, Axial SSFSE-IR, Axial DWI b=500, Axial 2D FIESTA FatSat, pre and dynamic postco ntrast Axial LAVA ARC, postcontrast Coronal In and Opposed phase LAVA FLEX COMPARISON: CT, 09/12/2020 CONTRAST: Multihance, 15 cc FINDINGS: The lung bases are clear. The heart size is normal. No MRI correlate is identified for the reported small lesion in the right hepatic lobe on the comparison CT. Again noted is chronic, severe atrophy of the central right kidney. There is a 3.6 cm cyst of the left kidney. Stones are present in the nondistended gallbladder. The spleen, pancreas, and adrenal glands are normal. There are no path ologically enlarged abdominal lymph nodes. No dilated loops of bowel are evident. IMPRESSION: 1. No suspicious kidney mass identified. 2. No MRI correlate identified for the liver lesion questioned on CT. Reviewed, dictated and finalized at location A.
== END 2020-10-28 16:21 | disposition home or self-care (01) ==
LOC: ANHIMG 16:23
PROVIDERS: PCP Family Medicine; Visit Provider Family Medicine
DX: D49.9 Neoplasm of unspecified behavior of unspecified site (principal)
CPT/HCPCS: 74183; A9577

== ENCOUNTER 2021-04-07 16:43 | Emergency (ER) | payer MEDICARE, OTHER, SELFPAY ==
--- NOTE | ~2021-04-07 | CT_ITS ---
EXAMINATION: CT abdomen pelvis w con DATE: 04/07/2021 18:25 INDICATION: Stabbing right lower quadrant pain. Nausea. TECHNIQUE: Computed tomography (CT) of the abdomen and pelvis was performed with 100 cc Omnipaque 350 intravenous contrast. The dose-length product was 444.55 mGy-cm. Automated exposure control and iter ative reconstruction technique were employed. COMPARISON: CT dated 09/13/2020. FINDINGS: Lung bases are unremarkable. Heart size is normal. No significant pleural or pericardial ef fusion. Moderate atherosclerosis. No aneurysm. No lymphadenopathy. Fatty infiltration of the liver. There are gallstones. The spleen, pancreas, adrenal glands are unrem arkable. There is severe right renal atrophy. There is a proximal right ureteral stone measuring 5 mm with mild hydronephrosis. There is a nonobstructing right renal stone. There is a left renal cyst. N onobstructive bowel gas pattern. Colonic diverticulosis without diverticulitis. Mild lumbar spondylos is. IMPRESSION: 1. Proximal right ureteral stone measuring 5 mm with mild hydronephrosis. 2: Cholelithiasis. Reviewed, dictated and finalized at location B. GRATION ASSOCIATE
[2021-04-07 17:00] VITALS: BP 181/90; PULSE 80; RESP 16; TEMP 36.3; O2SAT 97
--- NOTE | 2021-04-07 17:22 | ECG_ITS ---
Measurements Intervals Ashley Rate: 77 P: 215 UT: 136 QRS: 21 QRSD: 97 T: 30 QT: 376 QTc: 428 Interpretive Statements ECTOPIC ATRIAL RHYTHM VENTRICULAR PREMATURE COMPLEXES INCOMPLETE RIGHT BUNDLE BRANCH BLOCK BASELINE ARTIFACT- II, III, AVF ABNORMAL ECG Electronically Signed On 04-07-2021 18:16:47 FORMS EXAMINER by Jacky Hunter D.O.
[2021-04-07] MEDS: ONDANSETRON INJ 4 MG/2 ML VIAL IV PUSH (17:41)
[2021-04-07] MEDS: MORPHINE SULFATE (*CRX) 4 MG/ML INJ 2 MG IV PUSH (17:41)
[2021-04-07] MEDS: PANTOPRAZOLE SODIUM IV 40 MG VIAL IV PUSH (17:41)
[2021-04-07 17:42] LABS: Basophils Absolute Auto 0.01 K/mm3 (0.00-0.10); Basophils Percent Auto 0.1 % (0.0-1.0); Eosinophils Absolute Auto 0.03 K/mm3 (0.02-0.50); Eosinophils Percent Auto 0.4 % (1.0-6.0); Hematocrit 46.6 % (37.0-46.0); Hemoglobin 15.2 g/dL (12.4-15.3); Immature Granulocyte Absolute 0.02 K/mm3 (0.00-0.00); Immature Granulocyte Percent A 0.3 % (0.0-0.0); Lymphocytes Absolute Auto 0.82 K/mm3 (1.10-4.50); Lymphocytes Percent Auto 10.6 % (18.0-42.0); Mean Corpuscular HGB Conc 32.6 g/dL (32.0-36.0); Mean Corpuscular Volume 85.8 fL (78.0-102.0); Mean Platelet Volume 12.3 fl (8.7-11.0); Monocytes Absolute Auto 0.35 K/mm3 (0.10-0.90); Monocytes Percent Auto 4.5 % (2.0-11.0); Neutrophils Absolute Auto 6.5 K/mm3 (1.7-7.2); Neutrophils Percent Auto 84.1 % (50.0-70.0); Platelet Count Result 229 K/mm3 (150-420); Red Blood Count 5.43 M/mm3 (4.70-6.10); Red Cell Distribution Width 13.8 % (11.6-14.4); White Blood Count 7.8 K/mm3 (4.8-10.8)
[2021-04-07] MEDS: SODIUM CHLORIDE 0.9% IV 500 ML 999 ML IV CONT (17:42)
[2021-04-07 18:01] LABS: Alanine Aminotransferase 23 U/L (16-63); Albumin Level 3.7 g/dL (3.4-5.0); Alkaline Phosphatase 76 U/L (46-116); Anion Gap 12 mmol/L (8-16); Aspartate Amino Transferase 27 U/L (15-37); Bilirubin,Total 0.8 mg/dL (0.00-1.00); Blood Urea Nitrogen 12 mg/dL (7-18); Calcium 9.2 mg/dL (8.5-10.1); Carbon Dioxide 25 mmol/L (21-32); Chloride 101 mmol/L (98-108); Estimated CRCL calculation 53 ml/min; Estimated Glomerular Filt Rate 56; Glucose 173 mg/dL (70-99); Lipase 156 U/L (73-393); Osmolality Calculated 289 mOsm/kg (285-295); Potassium 4.4 mmol/L (3.5-5.1); Sodium 138 mmol/L (136-145); Total Protein 7.5 g/dL (6.4-8.2)
[2021-04-07 18:04] LABS: Lactic Acid Reflex 1.5 mmol/L (0.4-2.0)
[2021-04-07 18:10] LABS: Appearance Urine Cloudy (Clear); Bilirubin Urine 2+ (Negative); Blood Urine 3+ (Negative); Glucose Urine UA Negative (Negative); Ketones Urine 1+ (Negative); Leukocyte Esterase Ur Trace LEU/UL (Negative); Nitrate Urine Positive (Negative); Protein Urine 2+ (Negative); Specific Grav Ur >= 1.030 (1.010-1.020); pH Urine 6.5 (5.0-8.0)
[2021-04-07 18:16] LABS: Add Urine Microscopic? YES; Color Urine Dark Brown (Yellow); RBC Urine >75 /hpf (0-2); WBC Urine 0-3 /hpf (0-3)
[2021-04-07 18:17] LABS: Bacteria Urine 3+ /hpf
[2021-04-07] MEDS: MORPHINE SULFATE (*CRX) 2 MG/ML INJ IV PUSH (18:51)
--- NOTE | 2021-04-07 18:57 | ED.ABDPAIN ---
HPI - Abdominal Pain General Chief Complaint: Abdominal Pain Stated Complaint: possible appendicitis Time Seen by Provider: 04/07/21 16:47 Source: patient, family and RN notes reviewed Mode of arrival: ambulatory Limitations: no limitations History of Present Illness MD elicited complaint: flank pain Pertinent past history: kidney stones Onset (ago): hour(s) (12) Pain Consistency: constant Location: RLQ and R flank Severity: mild Pain scale (0-10): 8 Quality: cramping and aching Radiation: back Exacerbating factors: movement Relieving factors: nothing Associated symptoms: nausea and hematuria Related Data Home Medications Medication Instructions Recorded Confirmed aspirin 81 mg PO DAILY 08/02/19 04/07/21 atorvastatin 40 mg PO DAILY 08/02/19 04/07/21 isosorbide mononitrate 30 mg PO DAILY 08/02/19 04/07/21 lorazepam 1 mg PO TID PRN 08/02/19 04/07/21 paroxetine HCl 40 mg PO DAILY 08/02/19 04/07/21 tamsulosin 0.4 mg PO DAILY 08/02/19 04/07/21 aripiprazole 10 mg PO DAILY 04/07/21 04/07/21 metoprolol succinate 25 mg PO DAILY 04/07/21 04/07/21 risperidone 1 mg PO DAILY 04/07/21 04/07/21 Allergies Allergy/AdvReac Type Severity Reaction Status Date / Time No Known Allergies Allergy Verified 04/07/21 17:03 Review of Systems Review of Systems: All systems reviewed & are unremarkable except as noted in HPI and below PMFSH Past Medical History Medical History CAD (coronary artery disease) Depression HLD (hyperlipidemia) Right nephrolithiasis UTI (urinary tract infection) Social History Social History Years smoked: 30 Smoking status: Former smoker Tobacco type: cigarettes Second hand tobacco smoke exposure: Yes Smoking end date: 07/15/09 Alcohol intake: current Drinks per week: 1 Substance use: never Gender identity (if verbalized by the patient): Male Sexual Orientation (if Verbalized by the Patient): Straight or Heterosexual Spiritual care concerns: No Exam Const: General: no acute distress and alert Nutritional Appearance: well nourished Orientation/consciousness: patient oriented x3 Limitations: no limitations HENMT: Head: normal to inspection Ears: external ears normal, TM's normal bilaterally and EAC's normal General nose exam: Normal external nose present and Normal nares present Face and sinus: normal facial exam and sinuses nontender Mouth: Yes lip normal and Yes moist mucous membranes Eyes: Conjunctivae: conjunctivae normal Pupils: Equal, round and reactive pupils present EOM: EOMs intact bilaterally Neck: Neck: normal visual inspection and no lymphadenopathy Chest: Chest palpation & inspection: normal inspection of the chest Resp: Effort & Inspection: normal respiratory effort Auscultation: clear to auscultation bilaterally Cardio: Rate: regular rate Rhythm: regular rhythm GI: GI Palp: Yes Soft to palpation and Yes Tenderness to palpation present (GI) (RLQ) : General: Yes CVA tenderness (minimal right CVA tenderness.) Male General Exam: Yes normal external exam Testes: Testes normal Back/Spine/Pelvis: Back: CVA tenderness Skin: General skin exam: normal color Rashes: no rashes Neuro: General: patient oriented x3, moves all extremities, no meningeal signs, no focal motor deficits and CN's II-XI intact bilaterally Extrem: General: normal to inspection and no pedal edema Psych: Appearance: grossly normal and well kempt Mental Status: mental status grossly normal Affect: normal affect and Anxious affect present Attitude: cooperative Thought content: Yes Normal thought content present Course Course Emergency Course: Pt was stable and less painful in the ED. Reevaluation(s) Reevaluation #1: VSS. pt has meds for elevated BP. Date: 04/07/21 Time: 17:41 Vital Signs Vital signs: Vital Signs Temperature 36.3 C L 04/07/21 17:00 Pulse Rate
[2021-04-07 19:08] VITALS: BP 185/80; PULSE 66; RESP 16; TEMP 36.8; O2SAT 99
[2021-04-08 17:44] LABS: Hemoglobin A1C 6.2 % (<5.7)
== END 2021-04-07 19:18 | disposition home or self-care (01) ==
PROVIDERS: Emergency Provider Emergency Medicine; PCP Family Medicine
DX: K80.80 Other cholelithiasis without obstruction (principal); N20.0 Calculus of kidney; N30.01 Acute cystitis with hematuria; I25.10 Atherosclerotic heart disease of native coronary artery without angina pectoris; E78.5 Hyperlipidemia, unspecified; Z87.891 Personal history of nicotine dependence; Z79.899 Other long term (current) drug therapy
CPT/HCPCS: 36415; 74177; 80053; 81001; 83036; 83605; 83690; 84484; 85025; 87086; 93005; 96361; 96374; 96375; 96376; 99284; C9113; J2270; J2405; J7040; Q9967

== ENCOUNTER 2021-04-14 13:32 | Observation (INO) | payer MEDICARE, OTHER, SELFPAY ==
--- NOTE | ~2021-04-14 | XR_ITS ---
XR abdomen/kub 1V DATE: 04/14/2021 16:42 INDICATION: RIght abdominal pain For one week TECHNIQUE: AP projection, 2 views COMPARISON: April 07, 2021 CT abdomen pelvis FINDINGS: There is a persistent 5 mm calcified calculus overlying the right ureter at the L3-4 level, corresponding to a calcified calculus at mid L3 level on the April 07, 2021 CT abdomen pelvis. Associated as are intact. No visceromegaly is evident. There is no evidence of bowel obstruction. Status post sternotomy. IMPRESSION: 5 mm right ureteral calcified calculus at L3-4 level Reviewed, dictated and finalized at Location A. Reviewed, dictated and finalized at location A. ATTENDANT
--- NOTE | ~2021-04-14 | XR_ITS ---
EXAMINATION: XR retrograde pyelo w/stent RT EXAM DATE: 04/15/2021 10:59 INDICATION: Right-sided retrograde pyelogram, stent placement. TECHNIQUE: Fluoroscopy used during XR retrograde pyelo w/stent RT performed by Dr. James Lofton MD, urologist. The radiologist Juan Ibarra M.D. dictating this report of the image(s) available wa s not present for the procedure. Total fluoroscopic time of 23 seconds. The DAP for this procedure was 0.5 mGym2. A total of 80 images sent to PACS from the exam. Cine run(s) available for review. Correlation is made to CT 04/07/2021. FINDINGS: Possible identification of 5 mm right proximal ureteral stone on the lab nurse. Right ureter wa s cannulated, injected. No focal strictures. Small filling defect probably air bubbles introduced dur ing procedure. A double-J ureteral stent was placed. Correlate with procedure note. IMPRESSION: Right-sided double-J ureteral stent in position. Reviewed, dictated and finalized at location B. ING REGULATION ENFORCEMENT OFFICER
--- NOTE | ~2021-04-14 | XR_ITS ---
EXAMINATION: XR abdomen/kub 1V EXAM DATE: 04/15/2021 07:28 INDICATION: Right ureteral stone . TECHNIQUE: Frontal projection(s) of the abdomen for interpretation. Comparison is made to prior exami nation from 04/14/2021. FINDINGS: Right proximal ureteral 5 mm stone identified at the L3-4 endplate level, indicated. Nonob structive bowel gas pattern. There is no organomegaly. There are mild bony degenerative changes. IMPRESSION: Right proximal ureteral stone identified. Reviewed, dictated and finalized at location B. D ARTILLERY BASIC
[2021-04-14 13:38] VITALS: BP 135/83; PULSE 93; RESP 16; TEMP 36.8; O2SAT 97
[2021-04-14 14:42] LABS: Add Urine Microscopic? YES; Appearance Urine Clear (Clear); Bacteria Urine Trace /hpf; Bilirubin Urine Negative (Negative); Blood Urine 2+ (Negative); Color Urine Yellow (Yellow); Glucose Urine UA Negative (Negative); Ketones Urine Negative (Negative); Leukocyte Esterase Ur Negative LEU/UL (Negative); Mucus Urine Rare /lpf; Nitrate Urine Negative (Negative); Protein Urine 1+ mg/dL (Negative); RBC Urine >75 /hpf (0-2); Specific Grav Ur 1.026 (1.001-1.035); Urobilinogen Urine Negative mg/dL (<2.0)
[2021-04-14 15:14] VITALS: BP 162/92; PULSE 82; RESP 18; TEMP 37.1; O2SAT 100
[2021-04-14 17:15] LABS: Basophils Percent Auto 0.2 % (0.2-1.2); Eosinophils Percent Auto 0.4 % (0-4.4); Hematocrit 43.9 % (42.0-52.0); Hemoglobin 14.5 g/dL (14.0-18.0); Immature Granulocyte Absolute 0.03 K/mm3 (0.00-0.031); Immature Granulocyte Percent A 0.3 % (0-0.5); Lymphocytes Absolute Auto 0.98 K/mm3 (0.9-3.2); Lymphocytes Percent Auto 10.9 % (18.3-44.2); Mean Corpuscular Hemoglobin 28.3 pg (26-34); Mean Corpuscular Volume 85.7 fl (80-100); Mean Platelet Volume 12.3 fl (7.4-10.4); Monocytes Absolute Auto 0.6 K/mm3 (0.1-0.6); Monocytes Percent Auto 6.7 % (2.6-8.5); Neutrophils Absolute Auto 7.3 K/mm3 (1.3-6.7); Neutrophils Percent Auto 81.5 % (45.5-73.1); Platelet Count Result 223 k/mm3 (150-375); Red Blood Count 5.12 M/mm3 (4.6-6.20); Red Cell Distribution Width 13.9 % (11.5-14.5)
[2021-04-14 17:28] LABS: Alanine Aminotransferase 12 U/L (4-50); Albumin Level 4.3 g/dL (3.5-5.1); Alkaline Phosphatase 81 U/L (38-126); Anion Gap 12 mmol/L (8-16); Aspartate Amino Transferase 20 U/L (17-59); Bilirubin,Total 0.5 mg/dL (0.2-1.3); Blood Urea Nitrogen 21 mg/dL (9-20); Carbon Dioxide 24 mmol/L (22-30); Chloride 103 mmol/L (98-107); Estimated CRCL calculation 38 ml/min; Estimated Glomerular Filt Rate 38; Glucose 137 mg/dL (65-110); Lipase 47 U/L (23-300); Potassium 4.3 mmol/L (3.4-5.0); Sodium 139 mmol/L (137-145)
--- NOTE | 2021-04-14 17:47 | ED.ABDPAIN ---
HPI - Abdominal Pain General Chief Complaint: Abdominal Pain <NATALYA King Last Filed: 04/14/21 20:18> Stated Complaint: flank pain <NATALYA King Last Filed: 04/14/21 20:18> Time Seen by Provider: 04/14/21 16:30 <NATALYA King Last Filed: 04/14/21 20:18> Source: patient <NATALYA King Last Filed: 04/14/21 20:18> Mode of arrival: ambulatory <NATALYA King Last Filed: 04/14/21 20:18> Limitations: no limitations <NATALYA King Last Filed: 04/14/21 20:18> History of Present Illness HPI narrative: This is a 66-year-old male that presents to the emergency department for right flank pain present over the last week. Reports he was seen at the ER in [place] and diagnosed with a kidney stone. He followed up with his primary doctor today who sent him to the ER here for further evaluation. He ran out of his pain medication and has had continued pain in the right flank radiating into the abdomen. Associated with nausea. Denies fever, dysuria, or hematuria. <NATALYA King Last Filed: 04/14/21 20:18> Related Data Home Medications: Home Medications Medication Instructions Recorded Confirmed aspirin 81 mg PO DAILY 08/02/19 04/07/21 atorvastatin 40 mg PO DAILY 08/02/19 04/07/21 isosorbide mononitrate 30 mg PO DAILY 08/02/19 04/07/21 lorazepam 1 mg PO TID PRN 08/02/19 04/07/21 paroxetine HCl 40 mg PO DAILY 08/02/19 04/07/21 tamsulosin 0.4 mg PO DAILY 08/02/19 04/07/21 aripiprazole 10 mg PO DAILY 04/07/21 04/07/21 metoprolol succinate 25 mg PO DAILY 04/07/21 04/07/21 risperidone 1 mg PO DAILY 04/07/21 04/07/21 <NATALYA King Last Filed: 04/14/21 20:18> Allergies/Adverse Reactions: Allergies Allergy/AdvReac Type Severity Reaction Status Date / Time No Known Allergies Allergy Verified 04/07/21 17:03 <Aruna Spencer PA-C - Last Filed: 04/14/21 20:18> Review of Systems Review of Systems: CONSTITUTIONAL: Denies fever GASTROINTESTINAL: Reports abdominal pain, nausea. Denies vomiting GENITOURINARY: Denies dysuria or hematuria. <Aruna Spencer PA-C - Last Filed: 04/14/21 20:18> All systems reviewed & are unremarkable except as noted in HPI and below <Aruna Spencer PA-C - Last Filed: 04/14/21 20:18> PMFSH Past Medical History Medical History: Medical History CAD (coronary artery disease) Depression HLD (hyperlipidemia) Right nephrolithiasis UTI (urinary tract infection) <Aruna Spencer PA-C - Last Filed: 04/14/21 20:18> Social History Social History: Social History Years smoked: 30 Smoking status: Former smoker Tobacco type: cigarettes Second hand tobacco smoke exposure: Yes Smoking end date: 07/15/09 Alcohol intake: current Drinks per week: 1 Substance use: never Gender identity (if verbalized by the patient): Male Sexual Orientation (if Verbalized by the Patient): Straight or Heterosexual Spiritual care concerns: No <Aruna Spencer PA-C - Last Filed: 04/14/21 20:18> Exam Narrative: GENERAL: Well-appearing, well-nourished, and in no acute distress. HEAD: Normocephalic, atraumatic. EYES: EOMI. CHEST: Clear to auscultation. No respiratory distress. No wheezes rales or rhonchi HEART: Regular rate and rhythm. No murmur heard. Normal peripheral pulses. ABDOMEN: Soft, nondistended, normal active bowel sounds. Tender to palpation throughout the right side of the abdomen, without guarding. No CVA tenderness EXTREMITIES: Normal range of motion. No edema. SKIN: Warm, dry, no rash. NEURO: No focal deficits. Alert and oriented x3. PSYCH: Normal mood and affect <JASMINA King-Jitendra - Last Filed: 04/14/21 20:18> Course BOOSTER ASSEMBLER/PA Physician Supervision For this patient encounter, I reviewed the BOOSTER ASSEMBLER or PA documentation, treatment plan
[2021-04-14] MEDS: SODIUM CHLORIDE 0.9% IV 1,000 ML 999 ML IV CONT (18:02)
[2021-04-14] MEDS: ONDANSETRON INJ 4 MG/2 ML VIAL IV PUSH (18:06)
[2021-04-14] MEDS: MORPHINE SULFATE (*CRX) 4 MG/ML INJ IV PUSH ×3 (18:25→22:23)
[2021-04-14] MEDS: HYDROmorphone HCL INJ (*CRX) 1 MG/ML SYR 0.5 MG IV PUSH (19:09)
[2021-04-14 19:31] VITALS: BP 180/94; PULSE 72; RESP 14; TEMP 37.2; O2SAT 97
--- NOTE | 2021-04-14 19:48 | PM.IMHP ---
H&P: HPI History of Present Illness Date/Time: 04/14/21 19:48 Chief Complaint: Flank pain. Narrative: This is a 66-year-old male with past medical history significant for hypertension, coronary artery disease, hyperlipidemia, depression. Patient presents today to the emergency room due to flank pain on the right side this has been ongoing now for roughly a week patient had been to the stone done emergency room where he was treated for kidney stone was prescribed pain medications and sent home however the pain did not go away and presented today for this reason. Patient denies any fevers, any rigors, any chills ,pain is localized to the right costovertebral angle and flank relieved only by pain medication, patient has been taking ibuprofen at home has had some nausea but no vomiting denies any blood in the urine. Preliminary workup was significant for CT of abdomen and pelvis with a stone at the right ureter, chemistry panel was significant for a creatinine of 1.8 BUN 21. Patient has been admitted for further evaluation management and treatment. Review of Systems Review of Systems: Right costovertebral angle tenderness and flank pain for about a week. Constitutional: Constitutional: Denies chills, Denies fatigue, Denies fever(s), Denies malaise, Reports night sweats and Denies weakness Eyes: Eyes: Denies change in vision ENT: Denies dysphagia, Denies vertigo, Denies dizziness, Denies nasal congestion, Denies nasal discharge, Denies nasal obstruction and Denies odynophagia Cardiovascular: Cardiovascular: Denies chest pain, Denies lightheadedness, Denies radiating jaw, neck or arm pain, Denies palpitations, Denies dyspnea, Denies dyspnea on exertion and Denies orthopnea Respiratory: Respiratory: Denies cough, Denies excessive phlegm production, Denies dyspnea and Denies wheezing Gastrointestinal: Gastrointestinal: Denies abdominal pain, Denies dyspepsia, Denies heartburn, Denies diarrhea, Reports nausea and Denies vomiting Genitourinary: Genitourinary: Reports flank pain Musculoskeletal: Musculoskeletal: Denies myalgias Integumentary/Breasts: Skin/Breast: Denies rash Neurologic: Denies focal weakness and Denies Sensory deficit (Neuro) Psychiatric: Psychiatric: Reports no additional psychiatric complaints and Reports as per HPI Endocrine: Endocrine: Denies cold intolerance, Denies fatigue, Denies flushing, Denies heat intolerance, Denies polyphagia, Denies polydipsia and Denies palpitations Hematologic/Lymphatic: Hematologic/Lymphatic: Reports no additional hematologic/lymphatic complaints and Reports as per HPI Allergic/Immunologic: Allergic/Immunologic: Reports no additional allergic/immunologic complaints and Reports as per HPI [facility] Past Medical History Medical History (Updated 04/15/21 @ 00:23 by Abdelrahman Mendez MD) CAD (coronary artery disease) Depression HLD (hyperlipidemia) Right nephrolithiasis UTI (urinary tract infection) Family History Family History (Updated 04/14/21 @ 21:47 by Jodi Draper RN) Mother Acute myocardial infarction Asthma Hypertension Grandparent Prostate carcinoma Social History Social History Years smoked: 30 Smoking status: Former smoker Tobacco type: cigarettes Second hand tobacco smoke exposure: Yes Smoking end date: 07/15/09 Alcohol intake: never Drinks per week: 1 Substance use: never Gender identity (if verbalized by the patient): Male Sexual Orientation (if Verbalized by the Patient): Straight or Heterosexual Spiritual care concerns: No Meds Home Medications and Allergies Home Medications Medication Instructions Recorded Confirmed Type aspirin 81 mg PO DAILY 08/02/19 04/14/21 History atorvastatin 40 mg PO DAILY 08/02/19 04/14/21 History isosorbide mononitrate 30 mg PO DAILY 08/02/19 04/14/21 History lorazepam 1 mg PO TID PRN 08/02/19 04/14/21 History tamsulosin 0.4 mg PO DAILY 07/15
[2021-04-14 20:30] VITALS: BP 190/98; PULSE 78; RESP 16; TEMP 36.9; O2SAT 97
[2021-04-14 21:23] VITALS: PULSE 72; RESP 14; TEMP 36.8; O2SAT 97
--- NOTE | 2021-04-14 21:27 | PC.NURSE ---
Patient reports some pain relief at this time. He s being admitted for further eval and possible stent placement in the am. Understands all instructions.
--- NOTE | 2021-04-14 21:40 | ADMGEN ---
This patient, Ambrose Clarke, was admitted to Medical Room 258-01. Patient/family oriented to hospital policies and general routines including ID bracelet, bed and alarms, visiting hours, pain management, procedures, bathroom and other care routines, personal items, smoking policy, room service/diet, and visiting hours. Information on how to activate the Rapid Response Team has been discussed. Patient/Family are encouraged to report perceived risks to care and to ask questions if they do not understand what they are told or what they should do.
[2021-04-14] MEDS: DEXTROSE 5%/0.45% SOD CHL 1,000 ML 75 ML IV CONT (22:17)
[2021-04-14 22:25] VITALS: BP 162/86; PULSE 60; RESP 20; TEMP 36.1; O2SAT 98; BMI 25.2
[2021-04-14] MEDS: risperiDONE 1 MG TABLET PO (23:17)
[2021-04-15] VITALS (16 sets, daily range): BP systolic 101–180; BP diastolic 45–75; PULSE 50–97; RESP 10–20; TEMP 35.9–36.9; O2SAT 93–100
[2021-04-15] MEDS: HYDROmorphone HCL INJ (*CRX) 1 MG/ML SYR IV PUSH ×3 (00:47→09:15)
[2021-04-15] MEDS: ISOSORBIDE MONONITRATE 30 MG TAB.ER.24H PO ×2 (01:15→06:48)
[2021-04-15] MEDS: METOPROLOL SUCCINATE EXT REL 25 MG TABCR PO ×2 (01:15→06:48)
[2021-04-15] MEDS: MORPHINE SULFATE (*CRX) 4 MG/ML INJ IV PUSH (06:47)
--- NOTE | 2021-04-15 07:07 | WPDURCON ---
Assessment and Plan Assessment and plan (1) Ureterolithiasis: Code(s): N20.1 - Calculus of ureter Status: Acute Assessment and Plan: Plan cystoscopy with right ureteral stent placement today. If his stone is dropped into the more distal ureter we may attempt ureteroscopy with stone extraction. Patient is aware that he may require ESWL at some point in the future as definitive stone management. Urology Consult Note HPI Date Seen: 04/15/21 Requesting Physician: Abdelrahman Mendez MD Primary Care Provider: Navin Mendez MD Consult Narrative Narrative: Ambrose Clarke is a 66 year old male, who has spontaneously passed 1 ureteral calculus proximally 10 years ago, presents with right flank pain nausea. CT imaging demonstrates a 5 mm obstructing stone in his right mid ureter. He denies fevers chills gross hematuria or significant irritable voiding. Review of Systems Cardiovascular: Cardiovascular: Denies chest pain, Denies lightheadedness, Denies palpitations and Denies dyspnea Respiratory: Respiratory: Denies dyspnea Gastrointestinal: Gastrointestinal: Denies diarrhea, Denies nausea and Denies vomiting Genitourinary: Genitourinary: Denies hematuria and Denies dysuria Endocrine: Endocrine: Denies palpitations PMFSH Past Medical History Medical History CAD (coronary artery disease) Depression HLD (hyperlipidemia) Right nephrolithiasis UTI (urinary tract infection) Family History Family History Mother Acute myocardial infarction Asthma Hypertension Grandparent Prostate carcinoma Social History Social History Years smoked: 30 Smoking status: Former smoker Tobacco type: cigarettes Second hand tobacco smoke exposure: Yes Smoking end date: 07/15/09 Alcohol intake: never Drinks per week: 1 Substance use: never Gender identity (if verbalized by the patient): Male Sexual Orientation (if Verbalized by the Patient): Straight or Heterosexual Spiritual care concerns: No Meds Home Medications and Allergies Home Medications Medication Instructions Recorded Confirmed Type aspirin 81 mg PO DAILY 08/02/19 04/14/21 History atorvastatin 40 mg PO DAILY 08/02/19 04/14/21 History isosorbide mononitrate 30 mg PO DAILY 08/02/19 04/14/21 History lorazepam 1 mg PO TID PRN 08/02/19 04/14/21 History tamsulosin 0.4 mg PO DAILY 08/02/19 04/14/21 History nitroglycerin 0.4 mg SUBLINGUAL Q5-15M PRN #30 08/03/19 04/14/21 Rx tablet acetaminophen [Tylenol] 650 mg PO Q8H PRN #20 cap 09/13/20 04/14/21 Rx aripiprazole 10 mg PO DAILY 04/07/21 04/14/21 History metoprolol succinate 25 mg PO DAILY 04/07/21 04/14/21 History risperidone 1 mg PO HS 04/07/21 04/14/21 History tramadol 50 mg PO BID PRN #6 tablet 04/07/21 04/14/21 Rx ibuprofen 800 mg PO TID PRN 04/14/21 04/14/21 History Allergies Allergy/AdvReac Type Severity Reaction Status Date / Time No Known Allergies Allergy Verified 04/07/21 17:03 Vital Signs Vital Signs - 24 hr 04/14/21 13:38 04/14/21 15:14 04/14/21 19:31 Temperature 98.3 F 98.8 F 98.9 F Pulse Rate 93 82 72 Respiratory Rate 16 18 14 Blood Pressure 135/83 162/92 H 180/94 H Pulse Oximetry 97 100 97 04/14/21 20:30 04/14/21 21:23 04/14/21 22:25 Temperature 98.5 F 98.3 F 97.0 F L Pulse Rate 78 72 60 Respiratory Rate 16 14 20 Blood Pressure 190/98 H 162/86 H Pulse Oximetry 97 97 98 04/15/21 01:15 04/15/21 06:00 04/15/21 06:48 Temperature 97.1 F L Pulse Rate 77 78 75 Respiratory Rate 18 Blood Pressure 180/73 H Pulse Oximetry 96 Exam Const: General: no acute distress Resp: Effort & Inspection: normal respiratory effort GI: Inspection: non-distended GI Palp: No abdominal tenderness and No Guarding due to palpation present (GI) Auscultation: normal bowel sound
[2021-04-15] MEDS: LACTATED RINGERS 1,000 ML 30 ML IV CONT (09:45)
--- NOTE | 2021-04-15 09:56 | WPDANESEPPF ---
Anes - Initial Pre Proc Eval Procedure: Operation Date: 04/15/21 10:00 Proposed Procedures p Cystoscopy, Right Stent Placement, Possible Ureteroscopy with Stone Extraction - James Lofton MD Date/Time: 04/15/21 09:56 Surgeon: Abdelrahman Mendez MD Pre Op Diagnosis: Ureterolithiasis, TAMAR Patient Data Age: 66 Gender: M Height: 1.78 m Weight: 80 kg Last Vital Signs Temp 36.9 C 04/15/21 08:54 Pulse 69 04/15/21 08:54 Resp 18 04/15/21 08:54 BP 161/71 H 04/15/21 08:54 Pulse Ox 97 04/15/21 08:54 Allergies Allergy/AdvReac Type Severity Reaction Status Date / Time No Known Allergies Allergy Verified 04/07/21 17:03 Home Medications Medication Instructions Recorded Confirmed Type aspirin 81 mg PO DAILY 08/02/19 04/14/21 History atorvastatin 40 mg PO DAILY 08/02/19 04/14/21 History isosorbide mononitrate 30 mg PO DAILY 08/02/19 04/14/21 History lorazepam 1 mg PO TID PRN 08/02/19 04/14/21 History tamsulosin 0.4 mg PO DAILY 08/02/19 04/14/21 History nitroglycerin 0.4 mg SUBLINGUAL Q5-15M PRN #30 08/03/19 04/14/21 Rx tablet acetaminophen [Tylenol] 650 mg PO Q8H PRN #20 cap 09/13/20 04/14/21 Rx aripiprazole 10 mg PO DAILY 04/07/21 04/14/21 History metoprolol succinate 25 mg PO DAILY 04/07/21 04/14/21 History risperidone 1 mg PO HS 04/07/21 04/14/21 History tramadol 50 mg PO BID PRN #6 tablet 04/07/21 04/14/21 Rx ibuprofen 800 mg PO TID PRN 04/14/21 04/14/21 History Laboratory Tests 04/14/21 04/14/21 04/14/21 13:52 16:46 16:46 WBC 9.0 K/mm3 K/mm3 (4.5-10.0) RBC 5.12 M/mm3 M/mm3 (4.6-6.20) Hgb 14.5 g/dL g/dL (14.0-18.0) Hct 43.9 % % (42.0-52.0) MCV 85.7 fl fl (80-100) MCH 28.3 pg pg (26-34) MCHC 33.0 g/dl g/dl (32-36) RDW 13.9 % % (11.5-14.5) Plt Count 223 k/mm3 k/mm3 (150-375) MPV 12.3 fl H fl (7.4-10.4) Immature Gran % (Auto) 0.3 % % (0-0.5) Neut % (Auto) 81.5 % H % (45.5-73.1) Lymph % (Auto) 10.9 % L % (18.3-44.2) Bay % (Auto) 6.7 % % (2.6-8.5) Eos % (Auto) 0.4 % % (0-4.4) Baso % (Auto) 0.2 % % (0.2-1.2) Lymph # (Auto) 0.98 K/mm3 K/mm3 (0.9-3.2) [place] # (Auto) 0.6 K/mm3 K/mm3 (0.1-0.6) Eos # (Auto) 0.0 K/mm3 K/mm3 (0-0.3) Baso # (Auto) 0.0 K/mm3 K/mm3 (0.0-0.1) Abs Immat Gran (auto) 0.03 K/mm3 K/mm3 (0.00-0.031) Absolute Neuts (auto) 7.3 K/mm3 H K/mm3 (1.3-6.7) Absolute Nucleated RBC 0.0 K/mm3 K/mm3 (0.0-0.012) Nucleated RBC % 0.0 % % (0.0-0.2) Sodium 139 mmol/L mmol/L (137-145) Potassium 4.3 mmol/L mmol/L (3.4-5.0) Chloride 103 mmol/L mmol/L (98-107) Carbon Dioxide 24 mmol/L mmol/L (22-30) Anion Gap 12 mmol/L mmol/L (8-16) BUN 21 mg/dL H mg/dL (9-20) Creatinine 1.80 mg/dL H mg/dL (0.7-1.3) Estim Creat Clear Calc 38 ml/min ml/min Estimated GFR 38 L (59 - ) Glucose 137 mg/dL H mg/dL (65-110) Calcium 9.0 mg/dL mg/dL (8.4-10.2) Total Bilirubin 0.5 mg/dL mg/dL (0.2-1.3) AST 20 U/L U/L (17-59) ALT 12 U/L U/L (4-50) Alkaline Phosphatase 81 U/L U/L (38-126) Total Protein 7.0 g/dL g/dL (6.3-8.2) Albumin 4.3 g/dL g/dL (3.5-5.1) Lipase 47 U/L U/L (23-300) Urine Color Yellow (Yellow) Urine Appearance Clear (Clear) Urine pH 5.0 (5.0-9.0) Ur Specific [place] 1.026 (1.001-1.035) Urine Protein 1+ mg/dL H mg/dL (Negative) Urine Glucose (UA) Negative mg/dL mg/dL (Negative) Urine Ketones Negative mg/dL mg/dL (Negative) Ur Blood (Man) 2+ H (Negative) Urine Nitrate Negative (Negative) Urine Bilirubi
--- NOTE | 2021-04-15 10:27 | WPDHPUPDATE1 ---
History and Physical Update Update Date/Time: 04/15/21 10:27 History and Physical has been reviewed, including an updated exam of the patient. There are NO changes in the patient's condition. Risks, benefits, and alternatives have been discussed and questions answered. Patient agrees to proceed with procedure.
[2021-04-15] MEDS: LIDOCAINE HCL 2% GEL UROJET 10 ML PKG MUCOUS MEM (10:48)
--- NOTE | 2021-04-15 10:54 | W.PM.PROC2 ---
Procedure Note - Detailed Date of Procedure 04/15/21 Pre-op Diagnosis Ureterolithiasis, TAMAR Post-op Diagnosis same Procedure Performed Cystoscopy, right retrograde pyelography and right ureteral stent placement Surgeon James Lofton MD Anesthesia MAC Description of Procedure The patient was brought to the operative suite where he was prepped and draped in a routine sterile fashion while in the dorsal lithotomy position. A 21F rigid cystoscope was placed in her bladder and the bladder was circumferentially inspected. There were no urethral strictures. The prostatic urethral estimated length was 2.0cm. There was mild obstruction of the prostatic urethra with no median lobe. The bladder mucosa was without hyperemia. There was no intravesical foreign body or neoplasm. There was a single orthotopic ureteral orifice bilaterally. 8 F bulb tip catheter was used to obtain a right retrograde pyelogram in outline the collecting system for appropriate placement of the stent. This confirms his calcified 5-6 mm stone to be in the right proximal ureter. I advanced .035 glidewire into the right renal pelvis under fluoroscopy. A 4.8F variable length ureteral stent was positioned with the proximal coil in the renal pelvis and the distal coil in the bladder. Scopes and wires were removed after emptying the patient's bladder. Patient was taken to recovery room good condition. He can be discharged later today and I will make plans for outpatient lithotripsy with stent removal. Urine Output 600 Drains Yes Packing No Pathology none sent Complications No immediate complications Condition stable Disposition PACU
--- NOTE | 2021-04-15 14:00 | PM.DS ---
DS: Admitting Diagnosis Discharge Date 04/15/21 1400 Admitting Diagnosis Renal calculus DS: Discharge Diagnosis Discharge Diagnosis (1) Right nephrolithiasis: Code(s): N20.0 - Calculus of kidney Status: Acute Assessment and Plan: Admit to regular medical floor Pain management Urology consult Started on Rocephin patient with some WBC in urine and having night sweats CT abdomen and pelvis reviewed KUB reviewed (2) Atrophy, kidney: Code(s): N26.1 - Atrophy of kidney (terminal) Status: Acute Assessment and Plan: Avoid use of NSAID (3) CAD (coronary artery disease): Code(s): I25.10 - Atherosclerotic heart disease of [place] coronary artery without angina pectoris Status: Acute Assessment and Plan: Chest pain-free Continue home meds Continue to monitor (4) HLD (hyperlipidemia): Code(s): E78.5 - Hyperlipidemia, unspecified Status: Acute Assessment and Plan: Continue atorvastatin Follow-up in outpatient setting (5) Depression: Code(s): F32.9 - Major depressive disorder, single episode, unspecified Status: Acute Assessment and Plan: Continue aripiprazole Follow-up in outpatient setting DS: Summary Hospital Course Hospital Course: Patient is 66-year-old male with a past medical history CAD, depression, hyperlipidemia, and UTI who presented to the ED with severe abdominal pain. It was noted that patient had abdominal pain however was sent home with pain medications. Urology was consulted patient did go and have a CT of the abdomen which showed a right renal calculi that was covering the ureter. Urology did a cystoscopy today and a stent was placed. Dr. Lofton will follow with the patient up in the office. Patient has no further complaints at this time and is stable for discharge. Labs are also stable for discharge. Patient did show an elevation from BUN and creatinine at baseline. Currently patient denies chest pain, shortness of breath, nausea, vomiting, diarrhea with speech, weakness fatigue. Status at Discharge Functional status at discharge: independent ambulation Overall status at discharge: patient is progressing back to baseline Time Spent with Patient Time attestation: Total time spent providing and/or coordinating discharge services:48 minutes Time spent: Greater than 30 minutes Specific discharge activities: Diagnostic testing, chart review, developing a treatment plan, education, care coordination documentation, physical exam, result review Exam Const: General: cooperative, alert and in distress moderate Nutritional Appearance: thin Orientation/consciousness: oriented to person, oriented to place, oriented to time and patient oriented x3 Limitations: no limitations HENMT: Head: normal to inspection, normocephalic and atraumatic Ears: hearing grossly normal bilaterally General nose exam: Normal external nose present Face and sinus: normal facial exam Mouth: Yes Normal oral and palatal mucosa present Eyes: General: appearance normal, both eyes and all related structures Alignment and Position: alignment normal Sclera: sclerae normal Pupils: Equal, round and reactive pupils present EOM: EOMs intact bilaterally Neck: Neck: normal visual inspection, full ROM, no lymphadenopathy, supple and no JVD Thyroid: thyroid normal Lymphatic: no lymphadenopathy noted Resp: Effort & Inspection: normal respiratory effort, able to speak in complete sentences and no cough Auscultation: clear to auscultation bilaterally, no crackles, no rales, no rhonchi and no wheezes Cardio: Jugular venous distension: no JVD Rate: regular rate Rhythm: regular rhythm Heart sounds: S1 normal heart sound present and S2 normal heart sound present GI: Inspection: normal to inspection Auscultation: normal bowel sounds : General: Yes CVA tenderness (R) on the right Back/Spine/Pelvis: Back: CVA tenderness (R) Skin: General skin exam: shaniqua
== END 2021-04-15 17:00 | disposition home or self-care (01) ==
LOC: ANHED 20:13 → ANH2MED 04-15 07:13
PROVIDERS: Emergency Medicine; Physician Assistant; Urology; Admitting Provider Internal Medicine; Emergency Provider Emergency Medicine; PCP Family Medicine; Visit Provider Nurse Practitioner
PROC: (CPT 52352; principal; 2021-04-15 10:00)
DX: N20.1 Calculus of ureter (principal); N26.1 Atrophy of kidney (terminal); I25.10 Atherosclerotic heart disease of native coronary artery without angina pectoris; R78.5 Finding of other psychotropic drug in blood; F32.A Depression, unspecified; Z87.891 Personal history of nicotine dependence; Z87.442 Personal history of urinary calculi
CPT/HCPCS: 52332; 36415; 74018; 74420; 80053; 81001; 83690; 85025; 87086; 96361; 96365; 96367; 96375; 96376; 99285; A9270; C1758; C1769; C2617; G0378; J0131; J0696; J1170; J2250; J2270; J2405; J2704; J7030; J7120; Q9966

== ENCOUNTER 2021-04-23 10:26 | Outpatient (CLI) | payer MEDICARE, OTHER, SELFPAY ==
[2021-04-23 11:15] LABS: INR 1.1; Prothrombin Time 13.8 Seconds (11.1-14.7)
[2021-04-23 11:16] LABS: Partial Thromboplastin Time 29.6 SECONDS (22.3-36.8)
== END 2021-04-23 10:27 | disposition home or self-care (01) ==
LOC: ANHSURGERY 10:33
PROVIDERS: PCP Family Medicine; Visit Provider Urology
DX: N20.0 Calculus of kidney (principal); Z01.818 Encounter for other preprocedural examination
CPT/HCPCS: 36415; 85610; 85730; 87086

== ENCOUNTER 2021-05-01 00:28 | Day surgery (SDC) | payer MEDICARE, OTHER, SELFPAY ==
[2021-04-21 08:48] VITALS: BMI 25.9
--- NOTE | 2021-04-21 09:11 | PC.NURSE ---
Report to the Outpatient Waiting Room, entrance under the green pavilion located off [facility], at time __6:30AM on date __05/01/21 . OR Time: __8:30AM . - You and your visitor will be asked a series of questions to screen for COVID 19 for your protection. - A mask is required within the hospital. Preoperative COVID Testing Requirements: No COVID Test needed if: (proof is required; if not received patient will have Rapid Test prior to entry) - Patient has received COVID Vaccine at least 14 days prior to procedure date or - Patient has positive COVID test result within last 90 days of surgery date. COVID Test needed if above criteria is not met If not COVID vaccinated a COVID test must be conducted within 72 hours of surgery and patient is asked to isolate self from time of testing until procedure. You will go to the [facility] for your COVID testing. The [facility] is located at the corner of [address] [facility]. You will only be called if COVID results are positive and your surgeon may reschedule your elective surgery date. Patients may have clear liquids (water, carbonated beverages, clear teas, apple juice) until 3 hours prior to surgery with a maximum of 20 ounces. - No food from midnight until time of surgery - Infants may have breast milk until 4 hours before surgery, formula 6 hours prior to surgery. - Children will be allowed to drink immediately following surgery. If applicable, please bring a bottle or sippy cup to assist with drinking. Juice, water, soda, and popsicles are readily available. For infants on formula, please bring formula the day of surgery. Pacifiers are allowed. Take the following medications with a SIP of water the morning of surgery: ___ARIPIPRAZOLE, FLUOXETINE, ISOSORBIDE,METOPROLOL Medications to discontinue per physician HOLD_ASPIRIN PER DR HE, PATIENT CALLING OFFICE Date to take last dose Please no make-up, nail belarusian, hairspray, perfume, deodorant, or body powder the day of surgery. No jewelry (including any body piercings) or valuables the day of surgery, leave them at home. Please take a shower or bath the night before, or the morning of, surgery with an antibacterial soap. Wear comfortable, loose fitting clothing. Children are encouraged to wear pajamas. - Jewelry must be removed prior to entering the operating room. Rings and piercings that are not removed may be cut off. - The hospital will not accept responsibility for valuables. - Please leave all valuables, including medications, at home the day of surgery. If you are going home after surgery, a licensed rickshaw driver must drive you home. - NO public transportation without another adult. - We recommend that an adult stay with you for 24 hours following discharge. - We also recommend that you do not drive, make important decision, drink alcoholic beverages, or take any drugs that were not prescribed by your health care provider for at least 24 hours after your discharge time. For Pediatric surgeries, we recommend two adults accompany the child home (only one inside the building at this time). One visitor will be allowed to accompany the patient into the hospital. Patients visitor will be instructed to remain with patient at all times or leave the building. We will allow the visitor to come back to the postoperative area when patient is ready. Follow any additional instructions given to you from your surgeon. Telephone instructions given to __PATIENT and asked if any additional questions and then verbalized understanding. Patient advised to call surgeon office or pre surgery nurse liaison [phone] if any additional questions.
--- NOTE | 2021-04-27 08:13 | P.HP_ITS ---
History of Present Illness History of Present Illness Consent: Risks, benefits, and alternatives have been discussed and questions answered. Patient agrees to proceed with procedure. Chief complaint: right kidney stones Narrative: Ambrose Clarke is a 66 year old male initially seen in early April 2021 when he presented with a 6.5 mm right proximal ureteral stone and urinary tract infection. A ureteral stent was placed and he now presents for definitive stone management with right ESWL. He is aware of the risk including, but not limited to, persistent stone fragments, hematuria, injury to kidney. Review of Systems Cardiovascular: Cardiovascular: Denies chest pain, Denies lightheadedness, Denies palpitations and Denies dyspnea Respiratory: Respiratory: Denies dyspnea Gastrointestinal: Gastrointestinal: Denies diarrhea, Denies nausea and Denies vomiting Genitourinary: Genitourinary: Denies hematuria and Denies dysuria Endocrine: Endocrine: Denies palpitations PMFSH Past Medical History Medical History CAD (coronary artery disease) Depression HLD (hyperlipidemia) Right nephrolithiasis UTI (urinary tract infection) Family History Family History Mother Acute myocardial infarction Asthma Hypertension Grandparent Prostate carcinoma Social History Social History Smoking packs per day: 0.5 Smoking cigarettes per day: 10.0 Years smoked: 25 Smoking pack-years: 12.50 Smoking status: Former smoker Tobacco type: cigarettes Second hand tobacco smoke exposure: Yes Smoking end date: 08/14/14 Alcohol intake: never Drinks per week: 1 Substance use: never Additional living arrangements comments: SPOUSE Gender identity (if verbalized by the patient): Male Sexual Orientation (if Verbalized by the Patient): Straight or Heterosexual Spiritual care concerns: No Meds Home Medications and Allergies Home Medications Medication Instructions Recorded Confirmed Type aspirin 81 mg PO DAILY 08/02/19 04/21/21 History atorvastatin 40 mg PO DAILY 08/02/19 04/21/21 History lorazepam 1 mg PO BID PRN 08/02/19 04/21/21 History tamsulosin 0.8 mg PO DAILY 08/02/19 04/21/21 History nitroglycerin 0.4 mg SUBLINGUAL Q5-15M PRN #30 08/03/19 04/21/21 Rx tablet aripiprazole [Abilify] 10 mg PO QAM 04/07/21 04/21/21 History metoprolol succinate 25 mg PO QAM 04/07/21 04/21/21 History risperidone 1 mg PO HS 04/07/21 04/21/21 History acetaminophen [Tylenol Arthritis 1,300 mg PO Q12H PRN 04/21/21 04/21/21 History Pain] fluoxetine 20 mg PO QAM 04/21/21 04/21/21 History ibuprofen 600 mg PO Q6H PRN 04/21/21 04/21/21 History isosorbide mononitrate 60 mg PO QAM 04/21/21 04/21/21 History Allergies Allergy/AdvReac Type Severity Reaction Status Date / Time No Known Allergies Allergy Verified 04/21/21 08:38 Assessment and Plan Assessment and plan (1) Ureterolithiasis: Code(s): N20.1 - Calculus of ureter Status: Acute Assessment and Plan: * Right ESWL, cystoscopy with right ureteral stent removal
[2021-05-01] VITALS (7 sets, daily range): BP systolic 125–152; BP diastolic 58–87; PULSE 65–80; RESP 15–19; TEMP 36.5–36.7; O2SAT 97–100
--- NOTE | ~2021-05-01 | XR_ITS ---
XR abdomen/kub 1V 05/01/2021 06:37 Indication: Preop ESWL Procedure: KUB Comparison: Comparison to multiple prior studies sequentially, with oldest reviewed study dated 03/2019. Findings: Interval placement of right internal ureteral stent. There is a right ureteral stone at the L3 level. There is right renal stone adjacent to the coil of the stent. Bowel gas pattern nonobstruc tive. Lung bases are unremarkable. Mild lumbar spondylosis. Impression: 1: Right renal and proximal ureteral stones. Reviewed, dictated and finalized at location B. Impression: 1: Right renal and proximal ureteral stones.
--- NOTE | 2021-05-01 06:49 | WPDHPUPDATE1 ---
History and Physical Update Update Date/Time: 05/01/21 06:49 History and Physical has been reviewed, including an updated exam of the patient. There are NO changes in the patient's condition. Risks, benefits, and alternatives have been discussed and questions answered. Patient agrees to proceed with procedure.
[2021-05-01] MEDS: LACTATED RINGERS 1,000 ML 30 ML IV CONT (07:19)
--- NOTE | 2021-05-01 08:02 | WPDANESEPPF ---
Anes - Initial Pre Proc Eval Procedure: Operation Date: 05/01/21 08:30 Proposed Procedures p Right Extracorporeal Shock Wave Lithotripsy - James Lofton MD s Cystoscopy with Stent Removal - James Lofton MD Date/Time: 05/01/21 08:02 Surgeon: James Lofton MD Pre Op Diagnosis: right kidney stones Patient Data Age: 66 Gender: M Height: 1.78 m Weight: 80.4 kg Last Vital Signs Temp 36.5 C 05/01/21 06:43 Pulse 80 05/01/21 06:43 Resp 16 05/01/21 06:43 BP 125/62 05/01/21 06:43 Pulse Ox 97 05/01/21 06:43 Allergies Allergy/AdvReac Type Severity Reaction Status Date / Time No Known Allergies Allergy Verified 05/01/21 06:43 Home Medications Medication Instructions Recorded Confirmed Type aspirin 81 mg PO DAILY 08/02/19 05/01/21 History atorvastatin 40 mg PO DAILY 08/02/19 05/01/21 History lorazepam 1 mg PO BID PRN 08/02/19 05/01/21 History tamsulosin 0.8 mg PO DAILY 08/02/19 05/01/21 History nitroglycerin 0.4 mg SUBLINGUAL Q5-15M PRN #30 08/03/19 04/21/21 Rx tablet aripiprazole [Abilify] 10 mg PO QAM 04/07/21 05/01/21 History metoprolol succinate 25 mg PO QAM 04/07/21 05/01/21 History risperidone 1 mg PO HS 04/07/21 05/01/21 History acetaminophen [Tylenol Arthritis 1,300 mg PO Q12H PRN 04/21/21 05/01/21 History Pain] fluoxetine 20 mg PO QAM 04/21/21 05/01/21 History ibuprofen 600 mg PO Q6H PRN 04/21/21 05/01/21 History isosorbide mononitrate 60 mg PO QAM 04/21/21 05/01/21 History Patient hx anesthesia problems: none Family hx anesthesia problems: none Results Review: All pre-operative results and documents have been reviewed as part of the pre-operative evaluation. [facility] Past Medical History Medical History CAD (coronary artery disease) Depression HLD (hyperlipidemia) Right nephrolithiasis UTI (urinary tract infection) Family History Family History Mother Acute myocardial infarction Asthma Hypertension Grandparent Prostate carcinoma Social History Social History Smoking packs per day: 0.5 Smoking cigarettes per day: 10.0 Years smoked: 25 Smoking pack-years: 12.50 Smoking status: Former smoker Tobacco type: cigarettes Second hand tobacco smoke exposure: Yes Smoking end date: 08/14/14 Alcohol intake: never Drinks per week: 1 Substance use: never Living arrangements: with family Additional living arrangements comments: SPOUSE Gender identity (if verbalized by the patient): Male Sexual Orientation (if Verbalized by the Patient): Straight or Heterosexual Spiritual care concerns: No Anes - Eval Final PreProcedure Day of Procedure 05/01/21 08:02 Patient weight: overweight Heart: regular rate and rhythm Lungs: clear to auscultation Airway: Mallampati scale class II Neurological: alert and oriented Last oral intake: >/= 8 hours ASA classification: III Emergent: no Anesthetic plan: proceed Anesthesia type and monitoring: general LMA and standard monitoring Results Review: All pre-operative results and documents have been reviewed as part of the pre-operative evaluation. Informed Consent: The patient's anesthetic plan and its attendant risks and benefits were discussed with the patient/family/POA. Questions were solicited and answers provided to the satisfaction of the patient/family/POA.
[2021-05-01] MEDS: ceFAZolin 2 GM/D5W 50 ML 2 GM/50 ML BAG IVPB (08:20)
--- NOTE | 2021-05-01 08:50 | W.PM.PROC2 ---
Procedure Note - Detailed Date of Procedure 05/01/21 Pre-op Diagnosis Right ureteral stone Post-op Diagnosis Same Procedure Performed Cystoscpy, right ureteral stent removal / right ESWL Surgeon James Lofton MD Anesthesia General Description of Procedure The patient was brought to the operative suite where he was placed in the supine position on the Dornier lithotripter table. Flexible cystoscopy was undertaken with a 16F flexible cystoscopy. There were no urethral strictures. The prostatic urethra estimated length was 1.5cm. There was mild obstruction of the prostatic urethra with no median lobe enlargement. The bladder mucosa was normal and there was a single, orthotopic ureteral orifice bilaterally. the tip of the indwelling stent was grasped and it was removed with ease The patient was then repositioned in the supine position with the focal point of the lithotriptor on a 5-6mm right mid-ureteral calculus. A total of 3000 shocks were delivered at a power setting of 6. There appeared to be good fragmentation of the stone. The patient tolerated the procedure well and was taken to the recovery room in good condition. Estimated Blood Loss 0 Drains No Packing No Pathology None sent Complications No immediate complications Condition Stable Disposition PACU
--- NOTE | 2021-05-01 09:28 | SUR.PHASEI ---
0925- exxpresses the need to void, urinal in place. no return of urine at this time. airway out. moves all extremities strong.
--- NOTE | 2021-05-01 09:49 | SUR.PHASEI ---
0949- skin to right back and flank is without bruising, breakdown or redness.
== END 2021-05-01 10:48 | disposition home or self-care (01) ==
PROVIDERS: PCP Family Medicine; Visit Provider Urology
PROC: (CPT 50590; principal; 2021-05-01 08:30)
PROC: (CPT 52310; 2021-05-01 08:30)
DX: N20.1 Calculus of ureter (principal); N36.8 Other specified disorders of urethra; Z79.82 Long term (current) use of aspirin; I25.10 Atherosclerotic heart disease of native coronary artery without angina pectoris; F32.9 Major depressive disorder, single episode, unspecified; E78.5 Hyperlipidemia, unspecified; Z87.891 Personal history of nicotine dependence; N39.0 Urinary tract infection, site not specified
CPT/HCPCS: 50590; 52310; 36415; 74018; 85610; 85730; 87086; A9270; J0690; J2250; J2405; J2704; J3010; J7030; J7120

== ENCOUNTER 2021-06-08 10:56 | Outpatient (CLI) | payer MEDICARE, OTHER, SELFPAY ==
--- NOTE | ~2021-06-08 | XR_ITS ---
EXAMINATION: XR abdomen obstructive series DATE: 06/08/2021 11:38 INDICATION: Low abdominal pain for 2 weeks. TECHNIQUE: Upright and supine views of the abdomen on 3 radiographs were obtained. COMPARISON: CT abdomen and pelvis 04/07/2021 FINDINGS: There are no dilated loops of bowel. There is a small volume of stool in the colon. No free intraperitoneal gas. There is a 3 mm stone in right kidney. There is moderate atrophy of right kidne y. IMPRESSION: 1. Normal bowel gas pattern. 2. Small right kidney stone. Moderate right kidney atrophy. Reviewed, dictated and finalized at location A.
[2021-06-08 11:08] LABS: Basophils Absolute Auto 0.02 K/mm3 (0.00-0.10); Basophils Percent Auto 0.3 % (0.0-1.0); Eosinophils Absolute Auto 0.18 K/mm3 (0.02-0.50); Eosinophils Percent Auto 2.3 % (1.0-6.0); Hematocrit 44.6 % (37.0-46.0); Immature Granulocyte Absolute 0.03 K/mm3 (0.00-0.00); Immature Granulocyte Percent A 0.4 % (0.0-0.0); Lymphocytes Percent Auto 20.4 % (18.0-42.0); Mean Corpuscular HGB Conc 31.4 g/dL (32.0-36.0); Mean Corpuscular Hemoglobin 27.9 pg (27.0-31.0); Mean Platelet Volume 12.4 fl (8.7-11.0); Monocytes Absolute Auto 0.61 K/mm3 (0.10-0.90); Monocytes Percent Auto 7.8 % (2.0-11.0); Neutrophils Absolute Auto 5.4 K/mm3 (1.7-7.2); Neutrophils Percent Auto 68.8 % (50.0-70.0); Platelet Count Result 178 K/mm3 (150-420); Red Blood Count 5.01 M/mm3 (4.70-6.10); Red Cell Distribution Width 14.7 % (11.6-14.4); White Blood Count 7.8 K/mm3 (4.8-10.8)
[2021-06-08 11:10] LABS: Add Urine Microscopic? NO; Appearance Urine Clear (Clear); Bilirubin Urine Negative (Negative); Blood Urine Negative (Negative); Color Urine Light Yellow (Yellow); Glucose Urine UA Negative (Negative); Ketones Urine Negative (Negative); Leukocyte Esterase Ur Negative (Negative); Nitrate Urine Negative (Negative); Protein Urine Negative (Negative); Specific Grav Ur <= 1.005 (1.010-1.020); Urobilinogen Urine 0.2 mg/dL (0.2-1.0)
[2021-06-08 11:47] LABS: Alanine Aminotransferase 18 U/L (16-63); Alkaline Phosphatase 97 U/L (46-116); Amylase 32 U/L (25-115); Anion Gap 6 mmol/L (8-16); Aspartate Amino Transferase 14 U/L (15-37); Bilirubin,Total 0.7 mg/dL (0.00-1.00); Blood Urea Nitrogen 11 mg/dL (7-18); Calcium 9.2 mg/dL (8.5-10.1); Carbon Dioxide 30 mmol/L (21-32); Chloride 104 mmol/L (98-108); Estimated Glomerular Filt Rate 56; Glucose 90 mg/dL (70-99); Lipase 64 U/L (73-393); Osmolality Calculated 289 mOsm/kg (285-295); Potassium 4.7 mmol/L (3.5-5.1); Sodium 140 mmol/L (136-145); Total Protein 6.8 g/dL (6.4-8.2)
== END 2021-06-08 10:57 | disposition home or self-care (01) ==
LOC: CHSLAB 10:59
PROVIDERS: PCP Family Medicine; Visit Provider Family Medicine
DX: R10.30 Lower abdominal pain, unspecified (principal)
CPT/HCPCS: 36415; 74019; 80053; 81003; 82150; 83690; 85025

== ENCOUNTER 2021-07-24 13:59 | Outpatient (CLI) | payer MEDICARE, OTHER, SELFPAY ==
--- NOTE | ~2021-07-24 | XR_ITS ---
XR hip LT min 2V DATE: 07/24/2021 14:38 INDICATION: Chronic bilateral hip pain. No known injury. TECHNIQUE: AP and lateral views of left hip COMPARISON: None FINDINGS: There is mild left hip joint space narrowing and moderate spurring at the left hip joint, c onsistent with moderate left hip osteoarthritis. No fracture or dislocation, avascular necrosis or bone destruction is detected. IMPRESSION: Moderate left hip osteoarthritis Reviewed, dictated and finalized at location A.
--- NOTE | ~2021-07-24 | XR_ITS ---
XR knee RT 3V, XR knee LT 3V 07/24/2021 14:39 Indication: Chronic bilateral knee pain Procedure: 3 views of each knee Comparison: No prior studies for comparison. Findings: There is anatomic alignment. No significant joint space narrowing. No joint effusion. Vascu lar calcifications are present. No erosive changes. No foreign bodies. Impression: 1: No significant bone or joint abnormality. Reviewed, dictated and finalized at location B. Impression: 1: No significant bone or joint abnormality. Impression: 1: No significant bone or joint abnormality.
--- NOTE | ~2021-07-24 | XR_ITS ---
XR hip RT min 2V DATE: 07/24/2021 14:39 INDICATION: Chronic bilateral hip pain. No known injury. TECHNIQUE: AP and lateral views of right hip COMPARISON: None FINDINGS: There is minimal spurring of the right femoral head consistent with mild osteoarthritis. Ri ght hip joint space is relatively well preserved. No recent fracture or dislocation, periosteal reaction or bone destruction is detected. Probable old fracture deformity of the proximal right femoral shaft. IMPRESSION: Mild right hip osteoid arthritis Probable old fracture of the proximal right femoral shaft Reviewed, dictated and finalized at location A.
== END 2021-07-24 14:00 | disposition home or self-care (01) ==
LOC: CHSIMG 14:02
PROVIDERS: PCP Family Medicine; Visit Provider Family Medicine
DX: M16.12 Unilateral primary osteoarthritis, left hip (principal); M25.552 Pain in left hip; M25.551 Pain in right hip; M25.562 Pain in left knee; M25.561 Pain in right knee
CPT/HCPCS: 73502; 73562

== ENCOUNTER 2021-09-08 07:33 | Outpatient (CLI) | payer MEDICARE, OTHER, SELFPAY ==
--- NOTE | ~2021-09-08 | MR_ITS ---
EXAMINATION: MR knee RT wo con DATE: 09/08/2021 09:01 INDICATION: Right knee pain TECHNIQUE: Magnetic resonance imaging (MRI) of the right knee was performed without intravenous contr ast. Sequences included coronal PD-weighted FSE, coronal PD-weighted FS FSE, sagittal T2-weighted FS E, sagittal PD-weighted FS FSE and axial PD weighted fat saturated FSE. COMPARISON: None. FINDINGS: Medial compartment: Medial meniscus is normal. Articular cartilage is normal. Lateral compartment: Small tear of indeterminate morphology extending to the inferior articular surface along the inner th ird of the posterior horn of the lateral meniscus. There is more prominent amorphous increased intras ubstance signal the anterior to the lateral meniscus which does not definitively contact the articula r surface to meet criteria for meniscal tear, most likely representing mucoid degeneration. It should be noted that the anterior horn of the lateral meniscus is a site of significantly increased frequen cy of false positive findings of meniscal tear on MRI. Articular cartilage is normal. Patellofemoral compartment: Partial-thickness chondral fissuring involving up to half the cartilage thickness but without degener ative subchondral changes along the medial patellar facet and more focally at the inferomedial aspect of the lateral facet. Trochlear cartilage is normal. Ligaments and tendons: Anterior and posterior cruciate ligaments are normal. The medial collateral ligament and fibular edgardo ateral ligament complex are normal. Patellar tendon is normal. Mild tendinopathy at the medial aspect of the distal quadriceps tendon. The visualized medial and lateral hamstring tendons as well as the iliotibial band are normal. Fluid: Small right knee joint effusion at the suprapatellar pouch. Small ganglion cyst along the anteromedia l margin of the distal semimembranosus tendon. No loose osteochondral bodies identified. Osseous/other: Small region of cystlike change at the lateral nonarticular margin of the posterior weightbearing lat eral femoral condyle along the footplate of the lateral head of the gastrocnemius. No fracture or pat hologic marrow replacing process. IMPRESSION: 1. Small tear of indeterminate morphology contacting the inferior articular surface at the inner thir d of the posterior horn of the lateral meniscus. Additional more prominent increased intrasubstance s ignal at the anterior horn which does not unambiguously contact the articular surfaces on consecutive images and favor mucoid degeneration over additional tear. 2. Moderate grade patellar chondromalacia. 2. Nonspecific small right knee joint effusion. Reviewed, dictated and finalized at location A. IMPRESSION: 1. Small tear of indeterminate morphology contacting the inferior articular fiona face at the inner third of the posterior horn of the lateral meniscus. Addition al more prominent increased intrasubstance signal at the anterior horn which do es not unambiguously contact the articular surfaces on consecutive images and f avor mucoid degeneration over additional tear. 2. Moderate grade patellar chondromalacia. 2. Nonspecific small right knee joint effusion.
== END 2021-09-08 07:34 | disposition home or self-care (01) ==
LOC: CHSIMG 07:35
PROVIDERS: PCP Family Medicine; Visit Provider Orthopaedic Surgery
DX: M25.561 Pain in right knee (principal)
CPT/HCPCS: 73721

== ENCOUNTER 2021-09-29 12:20 | Outpatient (CLI) | payer MEDICARE, OTHER, SELFPAY ==
--- NOTE | ~2021-09-29 | MR_ITS ---
EXAMINATION: MR brain/brain stem wo/w con DATE: 09/29/2021 13:35 INDICATION: Paresthesias of skin. Right-sided numbness. TECHNIQUE: Magnetic resonance imaging (MRI) of the brain and brainstem was performed without and with 16 mL MultiHance intravenous contrast. COMPARISON: None. FINDINGS: There are scattered areas of nonspecific increased T2-weighted signal intensity in the cere bral white matter. There is no intracranial hemorrhage, acute infarction, or abnormal intracranial ma ss lesion. The ventricles are normal in size. There is mild mucosal thickening in the paranasal sinus es. There are likely changes of ocular lens replacement surgeries. The mastoid air cells are normal. IMPRESSION: 1. Mild nonspecific cerebral white matter disease, which likely represents chronic small vessel ische jose disease. Reviewed, dictated and finalized at location A. IMPRESSION: 1. Mild nonspecific cerebral white matter disease, which likely represents auto parker walter small vessel ischemic disease.
== END 2021-09-29 12:21 | disposition home or self-care (01) ==
PROVIDERS: PCP Family Medicine; Visit Provider Family Medicine
DX: R20.2 Paresthesia of skin (principal); R93.0 Abnormal findings on diagnostic imaging of skull and head, not elsewhere classified
CPT/HCPCS: 70553; A9577

== ENCOUNTER 2021-10-14 01:16 | Day surgery (SDC) | payer MEDICARE, OTHER, SELFPAY ==
--- NOTE | 2021-10-08 08:55 | PC.NURSE ---
Report to the Outpatient Waiting Room, entrance under the green pavilion located off [facility], at time _1130 on date __10/14/21 . OR Time: _1330 . - You and your visitor will be asked to self-screen and do not enter if you have any COVID symptoms. - Only one visitor and NO children visitors are allowed at this time. - The patient visitor is requested to leave or wait in car when not with patient due to restrictions. - A mask is required within the hospital. Patients may have clear liquids (water, carbonated beverages, clear teas, apple juice) until 3 hours prior to surgery with a maximum of 20 ounces. - No food from midnight until time of surgery - Infants may have breast milk until 4 hours before surgery, infant formula 6 hours prior to surgery. - Children will be allowed to drink immediately following surgery. If applicable, please bring a bottle or sippy cup to assist with drinking. Juice, water, soda, and popsicles are readily available. For infants on formula, please bring formula the day of surgery. Pacifiers are allowed. Take the following medications with a SIP of water the morning of surgery: __ARIPIPRAZOLE,FLUOXETINE,ISOSORBIDE,LORAZEPAM,METOPROLOL Medications to discontinue per physician __PT STATES PER DR RUTHERFORD ASPIRIN 7 DAYS PRE OP Date to take last dose__10/06/21 Please no make-up, nail swedish, hairspray, perfume, deodorant, or body powder the day of surgery. No jewelry (including any body piercings) or valuables the day of surgery, leave them at home. Please take a shower or bath the night before, or the morning of, surgery with an antibacterial soap. Wear comfortable, loose fitting clothing. Children are encouraged to wear pajamas. - Jewelry must be removed prior to entering the operating room. Rings and piercings that are not removed may be cut off. - The hospital will not accept responsibility for valuables. - Please leave all valuables, including medications, at home the day of surgery. If you are going home after surgery, a licensed courtesy driver must drive you home. - NO public transportation without another adult. - We recommend that an adult stay with you for 24 hours following discharge. - We also recommend that you do not drive, make important decision, drink alcoholic beverages, or take any drugs that were not prescribed by your health care provider for at least 24 hours after your discharge time. For Pediatric surgeries, we recommend two adults accompany the child home (only one inside the building at this time). Follow any additional instructions given to you from your surgeon. If you or anyone in your household have experienced Covid symptoms in the past week, please notify your surgeon or the nurse liaison at the phone number below for possible testing. Telephone instructions given to PATIENT and asked if any additional questions and then verbalized understanding. Patient advised to call surgeon office or pre surgery nurse liaison [phone] if any additional questions. Report to the Outpatient Waiting Room, entrance under the green pavilion located off [facility], at time on date . OR Time: . - You and your visitor will be asked to self-screen and do not enter if you have any COVID symptoms. - Only one visitor and NO children visitors are allowed at this time. - The patient visitor is requested to leave or wait in car when not with patient due to restrictions. - A mask is required within the hospital. Patients may have clear liquids (water, carbonated beverages, clear teas, apple juice) until 3 hours prior to surgery with a maximum of 20 ounces. - No food from midnight until time of surgery - Infants may have breast milk until 4 hours before surgery, formula 6 hours prior to surgery. - Children will be allowed to drink immediately following surgery. If applicable, please b
[2021-10-08 09:07] VITALS: BMI 25.8
[2021-10-14] VITALS (9 sets, daily range): BP systolic 110–163; BP diastolic 52–83; PULSE 56–76; RESP 11–16; TEMP 36.3–36.8; O2SAT 98–100
--- NOTE | 2021-10-14 07:33 | WPDHPUPDATE1 ---
History and Physical Update Update Date/Time: 10/14/21 07:33 History and Physical has been reviewed, including an updated exam of the patient. There are NO changes in the patient's condition. Risks, benefits, and alternatives have been discussed and questions answered. Patient agrees to proceed with procedure.
--- NOTE | 2021-10-14 11:43 | SUR.PREOP ---
PT STATES NO NEED FOR CRUTCH TRAINING AND HAS A PAIR OF CRUTCHES.
[2021-10-14] MEDS: ACETAMINOPHEN 500 MG TABLET 1000 MG PO (11:51)
[2021-10-14] MEDS: CELECOXIB 200 MG CAPSULE PO (11:51)
[2021-10-14] MEDS: LACTATED RINGERS 1,000 ML 30 ML IV CONT ×2 (12:01→15:40)
--- NOTE | 2021-10-14 12:33 | WPDANESEPPF ---
Anes - Initial Pre Proc Eval Procedure: Operation Date: 10/14/21 13:30 Proposed Procedures p Right Knee Arthroscopy, Proceed As Indicated - Sanjeev West MD Date/Time: 10/14/21 12:33 Surgeon: Sanjeev West MD Pre Op Diagnosis: right lateral meniscal tear Patient Data Age: 66 Gender: M Height: 1.78 m Weight: 82.2 kg Last Vital Signs Temp 36.8 C 10/14/21 11:24 Pulse 62 10/14/21 11:24 Resp 16 10/14/21 11:24 BP 110/52 L 10/14/21 11:24 Pulse Ox 98 10/14/21 11:24 O2 Del Method Room Air 10/14/21 11:24 Allergies Allergy/AdvReac Type Severity Reaction Status Date / Time No Known Allergies Allergy Verified 10/14/21 11:34 Home Medications Medication Instructions Recorded Confirmed Type aspirin 81 mg chewable tablet 81 mg PO DAILY 08/02/19 10/08/21 History atorvastatin 40 mg tablet 40 mg PO DAILY 08/02/19 10/08/21 History lorazepam 1 mg tablet 1 mg PO BID PRN Anxiety 08/02/19 10/08/21 History tamsulosin 0.4 mg capsule 0.8 mg PO DAILY 08/02/19 10/08/21 History nitroglycerin 0.4 mg sublingual 0.4 mg sublingual Q5-15M PRN chest 08/03/19 10/08/21 Rx tablet pain #30 tabs aripiprazole 10 mg tablet (Abilify) 10 mg PO QAM 04/07/21 10/08/21 History metoprolol succinate 25 mg 25 mg PO QAM 04/07/21 10/08/21 History tablet,extended release 24 hr acetaminophen 650 mg 1,300 mg PO Q12H PRN Pain 04/21/21 10/08/21 History tablet,extended release (Tylenol Arthritis Pain) fluoxetine 20 mg capsule 20 mg PO QAM 04/21/21 10/08/21 History ibuprofen 200 mg tablet 600 mg PO Q6H PRN Pain 04/21/21 10/08/21 History isosorbide mononitrate 60 mg 60 mg PO QAM 04/21/21 10/08/21 History tablet,extended release 24 hr chlorhexidine gluconate 4 % 1 applic topical ONCE #237 mL 10/07/21 10/08/21 Rx topical liquid (Hibiclens) mirabegron 25 mg tablet,extended 25 mg PO DAILY 10/08/21 10/08/21 History release 24 hr (Myrbetriq) Patient hx anesthesia problems: none Family hx anesthesia problems: none Results Review: All pre-operative results and documents have been reviewed as part of the pre-operative evaluation. [facility] Past Medical History Medical History (Updated 10/14/21 @ 12:34 by Blas Benedict MD) Anxiety Bipolar 1 disorder CAD (coronary artery disease) CAD (coronary artery disease) Depression HLD (hyperlipidemia) Lateral meniscus derangement Osteoarthritis Overweight (BMI 25.0-29.9) Right knee pain Right nephrolithiasis Ureterolithiasis UTI (urinary tract infection) Surgical History Surgical History (Updated 10/14/21 @ 12:34 by Blas Benedict MD) History of coronary artery stent placement S/P CABG (coronary artery bypass graft) Family History Family History Mother Acute myocardial infarction Asthma Hypertension Grandparent Prostate carcinoma Social History Social History Smoking packs per day: 0.5 Smoking cigarettes per day: 10.0 Years smoked: 25 Smoking pack-years: 12.50 Smoking status: Former smoker Tobacco type: cigarettes Second hand tobacco smoke exposure: Yes Smoking end date: 08/14/14 Alcohol intake: current Drinks per week: 1 Alcohol use details: ONE DRINK PER MONTH Substance use: never Living arrangements: with family Additional living arrangements comments: SPOUSE Gender identity (if verbalized by the patient): Male Sexual Orientation (if Verbalized by the Patient): Straight or Heterosexual Spiritual care concerns: No Anes - Eval Final PreProcedure Day of Procedure 10/14/21 12:33 Patient weight: overweight Heart: regular rate and rhythm Lungs: clear to auscultation Airway: Mallampati scale class II Neurological: alert and oriented Last oral intake: >/= 8 hours ASA classification: III Emergent: no Anesthetic plan: proceed Anesthesia type and monitoring: general LMA and standard monitor
--- NOTE | 2021-10-14 13:14 | SUR.PREOP ---
pt and spouse made aware surgery delay by 1hr to 1.5hrs. both verbalize understanding.
[2021-10-14] MEDS: ceFAZolin 2 GM/D5W 50 ML 2 GM/50 ML BAG IVPB (14:43)
--- NOTE | 2021-10-14 15:39 | W.PM.PROC2 ---
Procedure Note - Detailed Date of Procedure 10/14/21 Pre-op Diagnosis right lateral meniscal tear Post-op Diagnosis Same Procedure Performed RIGHT KNEE SCOPE Surgeon Sanjeev West MD Anesthesia General Description of Procedure PATIENT WAS TAKEN TO THE OPERATING ROOM SUITE. ANESTHESIA WAS INDUCED. THE RIGHT LEG WAS PREPPED AND DRAPED STERILE. TROCARS WERE PLACED IN TO THE KNEE JOINT IN THE USUAL FASHION. THE CAMERA WAS INTRODUCED. THERE WAS MODERATE CHONDROMALACIA TO THE PATELLA FEMORAL JOINT. THERE WAS A LOT OF SYNOVITIS IN ALL COMPARTMENTS. THE MEDIAL COMPARTMENT SHOWED MILD CHONDROMALACIA TO THE MEDIAL FEMORAL CONDYLE OR PLATEAU. THERE WAS NO MEDIAL MENISCUS TEAR. THE ACL WAS INTACT. THE LATERAL MENISCUS WAS TORN AT THE POSTERIOR HORN NEAR THE MENISCAL ROOT. THE TEAR WAS RESECTED. THE LATERAL COMPARTMENT HAD MILD CHONDROMALACIA AT THE LATERAL FEMORAL CONDYLE AND CHONDROPLASTY WAS PREFORMED. SYNOVECTOMY WAS PREFORMED WELL . THE PATELLO FEMORAL JOINT UNDERWENT CHONDROPLASTY OVER THE PATELLA. THERE WAS GRADE 2 CHONDROMALACIA IN A SMALL SECTION OF THE OF THE PATELLA. SYNOVECTOMY WAS PREFORMED IN THE SUPERIOR MEDIAL COMPARTMENT. THE WOUNDS WERE APPROXIMATED WITH 4.0 NYLON. STERILE DRESSING WAS APPLIED. PATIENT WAS EXTUBATED. Estimated Blood Loss 5 Complications No immediate complications Condition Stable Disposition PACU
[2021-10-14] MEDS: oxyCODONE HCL (*CRX) 5 MG TAB IR PO (16:51)
== END 2021-10-14 17:30 | disposition home or self-care (01) ==
PROVIDERS: PCP Family Medicine; Visit Provider Orthopaedic Surgery
PROC: (CPT 29870; principal; 2021-10-14 13:30)
DX: M23.251 Derangement of posterior horn of lateral meniscus due to old tear or injury, right knee (principal); M22.41 Chondromalacia patellae, right knee; M65.861 Other synovitis and tenosynovitis, right lower leg; M25.561 Pain in right knee; I25.10 Atherosclerotic heart disease of native coronary artery without angina pectoris; F32.A Depression, unspecified; E78.5 Hyperlipidemia, unspecified; Z87.891 Personal history of nicotine dependence; Z79.82 Long term (current) use of aspirin
CPT/HCPCS: 29881; A9270; J0690; J1100; J2250; J2405; J2704; J3010; J7120

== ENCOUNTER 2022-02-16 10:39 | Outpatient (CLI) | payer MEDICARE, OTHER, SELFPAY ==
--- NOTE | ~2022-02-16 | XR_ITS ---
Clinical Indication: Cough PA and lateral views of the chest: Comparison: 11/21/2018 Findings: The lungs are clear, without evidence of focal consolidation or pleural effusion. Cardiome diastinal silhouette is stable, with evidence of prior median sternotomy. Bones and soft tissues are unremarkable. Impression: Clear lungs. Reviewed, dictated and finalized at location . OR LINUX ADMINISTRATOR Impression: Clear lungs.
== END 2022-02-16 10:40 | disposition home or self-care (01) ==
LOC: CHSIMG 10:46
PROVIDERS: PCP Family Medicine; Visit Provider Family Medicine
DX: R05.1 Acute cough (principal)
CPT/HCPCS: 71046

== ENCOUNTER 2022-05-12 11:49 | Outpatient (CLI) | payer MEDICARE, OTHER, SELFPAY ==
--- NOTE | ~2022-05-12 | XR_ITS ---
Lumbosacral Spine: AP and lateral views Clinical History: Pain Findings: The normal lordotic curve is maintained. The vertebral bodies and posterior elements are i ntact. The intervertebral disc spaces are preserved. The sacroiliac joints are normally outlined. E xtensive atherosclerotic calcification of the aorta noted. Impression: No significant abnormality. Reviewed, dictated and finalized at location . Impression: No significant abnormality.
== END 2022-05-12 11:50 | disposition home or self-care (01) ==
LOC: CHSIMG 11:51
PROVIDERS: PCP Family Medicine; Visit Provider Family Medicine
DX: M54.16 Radiculopathy, lumbar region (principal)
CPT/HCPCS: 72100

== ENCOUNTER 2022-05-20 08:36 | Outpatient (CLI) | payer MEDICARE, OTHER, SELFPAY ==
--- NOTE | ~2022-05-20 | MR_ITS ---
EXAMINATION: MR lumbar spine wo/w con DATE: 05/20/2022 09:57 INDICATION: Lumbar radiculopathy. TECHNIQUE: Magnetic resonance imaging (MRI) of the lumbar spine was performed without and with 15 mL MultiHance intravenous contrast. COMPARISON: Lumbar spine MRI 08/21/2019, radiographs 05/12/2022 FINDINGS: There is moderate atrophy of right kidney. There is a 3.2 cm cyst in left kidney. Bone alig nment is normal. There is mild chronic anterior wedging of T12 vertebral body. There is mildly decrea sed disc height at L3-L4 and severely decreased disc height at L5-S1 with endplate remodeling. The di stal spinal cord signal intensity is normal. The conus medullaris is at L1. The following disc levels are specifically discussed: L1-L2: The disc does not extend beyond the endplate margin. There is mild bilateral facet joint osteo arthritis. There is no neural foraminal stenosis. There is no central canal stenosis. L2-L3: The disc does not extend beyond the endplate margin. There is moderate right and mild left fac et joint osteoarthritis. There is no neural foraminal stenosis. There is no central canal stenosis. L3-L4: The disc is bulging and has an annular fissure. There is moderate bilateral facet joint osteoa rthritis. There is mild bilateral neural foraminal stenosis. There is mild central canal stenosis. L4-L5: The disc is mildly bulging. There is severe bilateral facet joint osteoarthritis. There is mil d bilateral neural foraminal stenosis. There is no central canal stenosis. L5-S1: The disc is bulging and has an annular fissure. There is severe bilateral facet joint osteoart hritis. There is mild bilateral neural foraminal stenosis. There is mild central canal stenosis. IMPRESSION: 1. Severe lower lumbar spondylosis, stable from 08/21/2019. 2. Moderate atrophy of right kidney. Reviewed, dictated and finalized at location A.
== END 2022-05-20 08:37 | disposition home or self-care (01) ==
LOC: CHSIMG 08:39
PROVIDERS: PCP Family Medicine; Visit Provider Family Medicine
DX: M54.16 Radiculopathy, lumbar region (principal); M43.06 Spondylolysis, lumbar region; N26.1 Atrophy of kidney (terminal)
CPT/HCPCS: 72158; A9577

== ENCOUNTER 2022-06-08 12:23 | Outpatient (CLI) | payer MEDICARE, OTHER, SELFPAY ==
--- NOTE | ~2022-06-08 | XR_ITS ---
EXAMINATION: XR abdomen obstructive series DATE: 06/08/2022 13:10 INDICATION: Left lower quadrant abdominal pain. TECHNIQUE: Upright and supine views of the abdomen on 4 radiographs were obtained. COMPARISON: CT abdomen and pelvis 04/07/2021 FINDINGS: There are no dilated loops of bowel. There is a small volume of stool in the colon. No free intraperitoneal gas. There are changes of median sternotomy. IMPRESSION: 1. Normal bowel gas pattern. Reviewed, dictated and finalized at location A.
[2022-06-08 12:40] LABS: Appearance Urine Clear (Clear); Bilirubin Urine Negative (Negative); Blood Urine Negative (Negative); Color Urine Light Yellow (Yellow); Glucose Urine UA Negative (Negative); Ketones Urine Negative (Negative); Leukocyte Esterase Ur Negative (Negative); Nitrate Urine Negative (Negative); Protein Urine Negative (Negative); Specific Grav Ur <= 1.005 (1.010-1.020); Urobilinogen Urine 0.2 mg/dL (0.2-1.0)
[2022-06-08 12:40] LABS: Basophils Absolute Auto 0.03 K/mm3 (0.00-0.10); Basophils Percent Auto 0.4 % (0.0-1.0); Eosinophils Percent Auto 1.2 % (1.0-6.0); Hematocrit 44.5 % (37.0-46.0); Hemoglobin 14.3 g/dL (12.4-15.3); Immature Granulocyte Absolute 0.02 K/mm3 (0.00-0.00); Immature Granulocyte Percent A 0.2 % (0.0-0.0); Lymphocytes Absolute Auto 1.47 K/mm3 (1.10-4.50); Lymphocytes Percent Auto 18.3 % (18.0-42.0); Mean Corpuscular HGB Conc 32.1 g/dL (32.0-36.0); Mean Corpuscular Hemoglobin 28.9 pg (27.0-31.0); Mean Corpuscular Volume 90.1 fL (78.0-102.0); Mean Platelet Volume 11.9 fl (8.7-11.0); Monocytes Percent Auto 6.2 % (2.0-11.0); Neutrophils Absolute Auto 5.9 K/mm3 (1.7-7.2); Neutrophils Percent Auto 73.7 % (50.0-70.0); Platelet Count Result 172 K/mm3 (150-420); Red Blood Count 4.94 M/mm3 (4.70-6.10); Red Cell Distribution Width 14.3 % (11.6-14.4)
[2022-06-08 12:41] LABS: Add Urine Microscopic? NO
[2022-06-08 13:03] LABS: Alanine Aminotransferase 17 U/L (16-63); Albumin Level 3.7 g/dL (3.4-5.0); Alkaline Phosphatase 98 U/L (46-116); Amylase 51 U/L (25-115); Anion Gap 7 mmol/L (8-16); Aspartate Amino Transferase 24 U/L (15-37); Bilirubin,Total 0.5 mg/dL (0.00-1.00); Blood Urea Nitrogen 9 mg/dL (7-18); Calcium 9.1 mg/dL (8.5-10.1); Carbon Dioxide 28 mmol/L (21-32); Chloride 105 mmol/L (98-108); Estimated Glomerular Filt Rate 55; Glucose 101 mg/dL (70-99); Lipase 87 U/L (16-77); Osmolality Calculated 288 mOsm/kg (285-295); Potassium 4.7 mmol/L (3.5-5.1); Sodium 140 mmol/L (136-145); Total Protein 6.5 g/dL (6.4-8.2)
== END 2022-06-08 12:24 | disposition home or self-care (01) ==
LOC: CHSLAB 12:25
PROVIDERS: PCP Family Medicine; Visit Provider Family Medicine
DX: R10.30 Lower abdominal pain, unspecified (principal)
CPT/HCPCS: 36415; 74019; 80053; 81003; 82150; 83690; 85025; 87086